=== PATIENT | female | born 2000 | race Caucasian/White ===

== ENCOUNTER 2020-04-04 22:55 | Emergency (ER) | payer MEDICAID, OTHER ==
[~2020-04-04] VITALS: Ht 162.5 cm; Wt 75.7 kg
--- NOTE | 2020-04-04 23:07 | ED General ---
General Stated Complaint: VOMITING Source of Information: Patient History of Present Illness Date Seen by Provider: Apr 04, 2020 Time Seen by Provider: 23:04 Initial Comments 19-year-old female presenting with complaints of vomiting as well as cough and tightness in her chest. She was diagnosed with a sinus infection yesterday at the [facility] clinic. She is approximately 6 weeks estimated gestational age for a . She is following with Dr. Keny May for the . She had recently been around a friend of hers that was sick. Since then she has developed this illness and was concerned that she might have s tarted to get bronchitis because she is prone to having bronchitis. She had been having a lot of nausea and vomiting in the last 24 hours as well. She has had not had any abdominal pain or vaginal bleeding or discharge. She states that with her first she did have to take nausea medicine almost every day. She has had subjective fever and chills. She denies having any dizziness or lightheaded sensation. she did have a negative COVID test at the [facility] yesterday. Allergies and Home Medications Allergies Coded Allergies: Penicillins (Verified Allergy, Unknown, 04/04/20) amoxicillin (Verified Allergy, Unknown, 04/04/20) Home Medications Ondansetron 4 Mg Tab.rapdis, 4 MG PO Q6H PRN for NAUSEA/VOMITING Prescribed by: CHELSEA HEMPHILL on 04/04/20 1651 Patient Home Medication List Home Medication List Reviewed: Yes Review of Systems Review of Systems Constitutional: chills; No dizziness; fever (subjective) EENTM: hoarseness, nose congestion; No ear discharge, No ear pain, No epistaxis Respiratory: cough Cardiovascular: chest pain (tightness in her chest) Gastrointestinal: No abdominal pain; constipation (2 days since her last bowel movement); No diarrhea; nausea, vomiting Genitourinary: No dysuria, No pain : Yes Musculoskeletal: no symptoms reported Skin: no symptoms reported Psychiatric/Neurological: Denies Headache Past Drcmmji-Soinhx-Ailgjx Hx Past Med/Social Hx: Reviewed Nursing Past Med/Soc Hx Patient Social History Recent Foreign Travel: No Contact w/Someone Who Travel: No Past Medical History Surgeries: No Respiratory: No Cardiac: No Neurological: No Reproductive Disorders: No Genitourinary: No Gastrointestinal: No Musculoskeletal: No Endocrine: No HEENT: No Physical Exam Vital Signs Vital Signs - First Documented 12/11/20 23:00 Temp 37.5 Pulse 85 Resp 16 B/P (MAP) 120/80 (93) Pulse Ox 100 O2 Delivery Room Air Capillary Refill : Height, Weight, BMI Height: '" Weight: lbs. oz. kg; BMI Method: General Appearance: WD/WN, Mild Distress HEENT: PERRL/EOMI, Moist Mucous Membranes, Pharyngeal Erythema, TM Abnormal (L) (dullness with effusion), TM Abnormal (R) (dullness with effusion); No Tonsillar Exudate Neck: Non Tender, Supple, Lymphadenopathy (L), Lymphadenopathy (R) Respiratory: Chest Non Tender, No Accessory Muscle Use, No Respiratory Distress, Rhonci (left side clears with cough); No Stridor, No Wheezing Cardiovascular: Regular Rate, Rhythm, Normal Peripheral Pulses Gastrointestinal: Normal Bowel Sounds, No Pulsatile Mass, Non Tender, Soft Extremity: Normal Capillary Refill, No Calf Tenderness, No Pedal Edema Neurologic/Psychiatric: Alert, Oriented x3 Skin: Normal Color, Warm/Dry Progress/Results/Core Measures Suspected Sepsis SIRS Temperature: Pulse: Respiratory Rate: Blood Pressure / Mean: Results/Orders My Orders Orders - CHELSEA HEMPHILL MD Dexamethasone Injection (Decadron Inje (04/04/20 23:30) Methylprednisolone Acetate Inj (Depo-Med (04/04/20 23:30) Ondansetron Oral Dissolve Tab (Zofran (04/04/20 23:30) Rx-Ondansetron Po (Rx-Zofran Po) (04/04/20 23:45) Rx-Albuterol Inhaler (Rx-Ventolin Hfa) (04/04/20 23:45) Vital Signs/I&O 04/04/20 23:00 Temp 37.5 Pulse 85 Resp 16 B/P (MAP) 120/80 (93) Pulse Ox 100 O2 Delivery Room Air Capillary Refill : Progress Note : Progress Note . Reassured patient that her oxygen saturation was 98-100%. Her heart rate is around 80. Will treat with steroid and albuterol with spacer. Use Zofran ODT for her nausea. Encourage fluids and rest. Counseled to follow-up with Dr. May for her continued symptoms. Departure Impression Primary Impression: Upper respiratory infection with cough and congestion Additional Impressions: Incidental Nausea and vomiting during Disposition: HOME, SELF-CARE Condition: Stable Departure-Patient Inst. Decision time for Depature: 23:40 Referrals: KENY MAY MD Patient Instructions: How to Use Your Metered Dose Inhaler (Adults), How to Use a Spacer, Nausea and Vomiting of (DC), Nausea and Vomiting, Adult ED, Upper Respiratory Infection ED Add. Discharge Instructions: Stay well hydrated and get plenty of rest Follow up with clinic for continued symptoms Take the dissolving nausea medicine to try and help with keeping your stomach settled Use the inhaler to help with cough and tightness in chest Scripts Ondansetron (Ondansetron Odt) 4 Mg Tab.rapdis 4 MG PO Q6H PRN for NAUSEA/VOMITING for 3 Days, #12 TAB 0 Refills Prov: CHELSEA HEMPHILL MD 04/04/20 CHELSEA HEMPHILL MD Apr 04, 2020 23:07
[2020-04-04] MEDS ORDERED: methylPREDNISolone 40 MG/ML (DEPO MEDROL) VIAL IM STA (23:30)
[2020-04-04] MEDS ORDERED: ONDANSETRON 4 MG (ZOFRAN) ORAL DISSOLVE TAB PO STA (23:30)
[2020-04-04] MEDS ORDERED: ONDA4TAB11 PO (23:39)
[2020-04-04] MEDS ORDERED: RX-ALBUTEROL INHALER (VENTOLIN HFA) 18 GM IH PRN (23:45)
[2020-04-04] MEDS ORDERED: RX-ONDANSETRON 4 MG ODT (ZOFRAN) PPK #4 PO PRN (23:45)
[2020-04-04 23:57] VITALS: BP 118/79
== END 2020-04-04 23:57 | disposition home or self-care (01) ==
LOC: ER FS 22:57
DX: O26.891 Other specified pregnancy related conditions, first trimester (principal); J06.9 Acute upper respiratory infection, unspecified; R05 Cough; R11.2 Nausea with vomiting, unspecified; Z3A.01 Less than 8 weeks gestation of pregnancy; Z88.0 Allergy status to penicillin; Z88.1 Allergy status to other antibiotic agents
CPT/HCPCS: 99284

== ENCOUNTER 2020-09-01 22:46 | Emergency (ER) | payer MEDICAID ==
[~2020-09-01 22:46] MED LIST: ONDA4TAB11 PO
[2020-09-01] MEDS: NS IV 1000 ML 1,000 ML IV SCH (23:20)
[2020-09-01 23:26] LABS: BASOPHILS # (AUTO) 0.1 10^3/uL (0.0-0.1); BASOPHILS % (AUTO) 0 % (0-10); EOSINOPHILS # (AUTO) 0.2 10^3/uL (0.0-0.3); EOSINOPHILS % (AUTO) 1 % (0-10); HEMATOCRIT 34 % (35-52); HEMOGLOBIN 11.6 G/DL (11.5-16.0); LYMPHOCYTES # (AUTO) 2.6 X 10^3 (1.0-4.0); LYMPHOCYTES % (AUTO) 16 % (12-44); MEAN CORPUSCULAR HEMOGLOBIN 31 PG (25-34); MEAN CORPUSCULAR HGB CONC 34 G/DL (32-36); MEAN CORPUSCULAR VOLUME 91 FL (80-99); MEAN PLATELET VOLUME 10.4 FL (7.4-10.4); MONOCYTES # (AUTO) 1.1 X 10^3 (0.0-1.0); MONOCYTES % (AUTO) 7 % (0-12); NEUTROPHILS % (AUTO) 74 % (42-75); PLATELET COUNT 328 10^3/uL (130-400); WHITE BLOOD COUNT 16.3 10^3/uL (4.3-11.0)
[2020-09-01 23:46] LABS: BILIRUBIN,TOTAL 0.2 MG/DL (0.1-1.0); BUN/CREATININE RATIO 19; CALCIUM 8.8 MG/DL (8.5-10.1); CARBON DIOXIDE 19 MMOL/L (21-32); CHLORIDE 104 MMOL/L (98-107); CREATININE SERUM 0.48 MG/DL (0.60-1.30); GFR ESTIMATED > 60; GLUCOSE 82 MG/DL (70-105); MAGNESIUM 1.8 MG/DL (1.6-2.4); POTASSIUM 3.6 MMOL/L (3.6-5.0); SODIUM 133 MMOL/L (135-145)
[2020-09-01 23:47] LABS: ALANINE AMINOTRANSFERASE 10 U/L (0-55); ALBUMIN 3.5 GM/DL (3.2-4.5); ALKALINE PHOSPHATASE 75 U/L (40-136); TOTAL PROTEIN 6.6 GM/DL (6.4-8.2)
[2020-09-01 23:52] LABS: ATYPICAL LYMPHOCYTES 4 %; BAND NEUTROPHILS 7 %; LYMPHOCYTES % (MANUAL) 18 %; METAMYELOCYTES % 2 %; MONOCYTES % (MANUAL) 6 %; NEUTROPHILS % (MANUAL) 63 %
[2020-09-01 23:53] LABS: RBC MORPH NORMAL
[2020-09-02] MEDS: NS IV 1000 ML 1,000 ML IV SCH (00:11)
[2020-09-02 00:13] LABS: COLOR,URINE DARK YELLOW
[2020-09-02 00:14] LABS: BILIRUBIN,URINE NEGATIVE (NEGATIVE); CLARITY,URINE CLEAR; GLUCOSE, URINE (UA) NEGATIVE (NEGATIVE); KETONES,URINE NEGATIVE (NEGATIVE); LEUKOCYTE ESTERASE ,URINE NEGATIVE (NEGATIVE); NITRITE,URINE NEGATIVE (NEGATIVE); PROTEIN,URINE NEGATIVE (NEGATIVE)
[2020-09-02 00:18] LABS: BACTERIA,URINE MODERATE /HPF; CALCIUM OXALATE CRYSTALS,UR RARE /LPF
--- NOTE | 2020-09-02 00:24 | ED General ---
General Chief Complaint: Dizziness/Syncope Stated Complaint: LIGHT-HEADED | DIZZY | SHAKING | HOT/COLD FLASHES Nursing Triage Note: Pt states that she has been feeling lightheaded since she woke up this morning Nursing Sepsis Screen: No Definite Risk Source of Information: Patient History of Present Illness Date Seen by Provider: September 02, 2020 Time Seen by Provider: 23:00 Initial Comments Patient is a 20-year-old G2, P1, estimated 27 weeks gestation female who presents with dizziness and lightheadedness upon standing today at work. 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 Patient states symptoms are positional. She reports dizziness with near syncope but denies fall or loss of consciousness. She denies chest pain palpitations, shortness of breath, leg pain swelling. No history of DVT or PE. She denies fever chills, nausea vomiting or sweats. No abdominal pain, pelvic cramping/pain, constipation or diarrhea. No urinary frequency urgency or dysuria. No vaginal discharge or fluid leakage. No other symptoms or complaints. Timing/Duration: 12-24 Hours Severity: Mild Modifying Factors: improves with Other Associated Systoms: Other Allergies and Home Medications Allergies Coded Allergies: Penicillins (Verified Allergy, Unknown, 04/04/20) amoxicillin (Verified Allergy, Unknown, 04/04/20) Home Medications Ondansetron 4 Mg Tab.rapdis, 4 MG PO Q6H PRN for NAUSEA/VOMITING Prescribed by: CHELSEA HEMPHILL on 04/04/20 3064 Patient Home Medication List Home Medication List Reviewed: Yes Review of Systems Review of Systems Constitutional: see HPI EENTM: see HPI Respiratory: see HPI Cardiovascular: see HPI Gastrointestinal: see HPI Genitourinary: see HPI Musculoskeletal: see HPI Skin: see HPI Psychiatric/Neurological: See HPI Hematologic/Lymphatic: See HPI Immunological/Allergic: see HPI All Other Systems Reviewed Negative Unless Noted: Yes Past Hdtgqmp-Vpzpgk-Qhvada Hx Past Med/Social Hx: Reviewed Nursing Past Med/Soc Hx Patient Social History Alcohol Use: Denies Use Recent Infectious Disease Expo: No Recent Hopitalizations: No Seasonal Allergies Seasonal Allergies: No Past Medical History Surgeries: No Respiratory: No Cardiac: No Neurological: No Reproductive Disorders: No Female Reproductive Disorders: Denies Genitourinary: No Gastrointestinal: No Musculoskeletal: No Endocrine: No HEENT: No Cancer: No Psychosocial: No Integumentary: No Blood Disorders: No Physical Exam Vital Signs Vital Signs - First Documented 09/01/20 22:50 Temp 36.6 Pulse 97 Resp 18 B/P (MAP) 141/80 (100) Pulse Ox 99 O2 Delivery Room Air Capillary Refill : Less Than 3 Seconds Height, Weight, BMI Height: '" Weight: lbs. oz. kg; 28.00 BMI Method: General Appearance: No Apparent Distress Eyes: Bilateral Eye Normal Inspection, Bilateral Eye PERRL, Bilateral Eye EOMI HEENT: PERRL/EOMI, Pharynx Normal, Moist Mucous Membranes Neck: Full Range of Motion, Non Tender, Supple Respiratory: Lungs Clear Cardiovascular: Regular Rate, Rhythm Gastrointestinal: Non Tender, Soft Back: Normal Inspection, No CVA Tenderness Extremity: Normal Capillary Refill Neurologic/Psychiatric: Alert, Oriented x3, No Motor/Sensory Deficits, gate operator II- XII Norm as Tested Skin: Normal Color Lymphatic: No Adenopathy Focused Exam Sepsis Stage: Ruled Out Progress/Results/Core Measures Suspected Sepsis Recent Fever Within 48 Hours: No Infection Criteria Present: None New/Unexplained Altered Menta: No Sepsis Screen: No Definite Risk SIRS Temperature: Pulse: 97 Respiratory Rate: 18 Laboratory Tests 09/01/20 23:17: White Blood Count 16.3H Blood Pressure 141 /80 Mean: 100 Laboratory Tests 09/01/20 23:17: Creatinine 0.48L, Platelet Count 328, Total Bilirubin 0.2 Results/Orders Lab Results Laboratory Tests Test 09/01/20 23:17 09/02/20 00:06 Range/Units White Blood Count 16.3 H 4.3-11.0 10^3/uL Red Blood Count 3.72 L 4.35-5.85 10^6/uL Hemoglobin 11.6 11.5-16.0 G/DL Hematocrit 34 L 35-52 % Mean Corpuscular Volume 91 80-99 FL Mean Corpuscular Hemoglobin 31 25-34 PG Mean Corpuscular Hemoglobin Concent 34 32-36 G/DL Red Cell Distribution Width 13.2 10.0-14.5 % Platelet Count 328 130-400 10^3/uL Mean Platelet Volume 10.4 7.4-10.4 FL Immature Granulocyte % (Auto) 2 % Neutrophils (%) (Auto) 74 42-75 % Lymphocytes (%) (Auto) 16 12-44 % Monocytes (%) (Auto) 7 0-12 % Eosinophils (%) (Auto) 1 0-10 % Basophils (%) (Auto) 0 0-10 % Neutrophils # (Auto) 12.0 H 1.8-7.8 X 10^3 Lymphocytes # (Auto) 2.6 1.0-4.0 X 10^3 Monocytes # (Auto) 1.1 H 0.0-1.0 X 10^3 Eosinophils # (Auto) 0.2 0.0-0.3 10^3/uL Basophils # (Auto) 0.1 0.0-0.1 10^3/uL Immature Granulocyte # (Auto) 0.3 H 0.0-0.1 10^3/uL Neutrophils % (Manual) 63 % Lymphocytes % (Manual) 18 % Monocytes % (Manual) 6 % Metamyelocytes % 2 % Band Neutrophils 7 % Atypical Lymphocytes 4 % Blood Morphology Comment NORMAL Sodium Level 133 L 135-145 MMOL/L Potassium Level 3.6 3.6-5.0 MMOL/L Chloride Level 104 98-107 MMOL/L Carbon Dioxide Level 19 L 21-32 MMOL/L Anion Gap 10 5-14 MMOL/L Blood Urea Nitrogen 9 7-18 MG/DL Creatinine 0.48 L 0.60-1.30 MG/DL Estimat Glomerular Filtration Rate > 60 BUN/Creatinine Ratio 19 Glucose Level 82 70-105 MG/DL Calcium Level 8.8 8.5-10.1 MG/DL Corrected Calcium 9.2 8.5-10.1 MG/DL Magnesium Level 1.8 1.6-2.4 MG/DL Total Bilirubin 0.2 0.1-1.0 MG/DL Aspartate Amino Transf (AST/SGOT) 13 5-34 U/L Alanine Aminotransferase (ALT/SGPT) 10 0-55 U/L Alkaline Phosphatase 75 40-136 U/L Total Protein 6.6 6.4-8.2 GM/DL Albumin 3.5 3.2-4.5 GM/DL Urine Color DARK YELLOW Urine Clarity CLEAR Urine pH 6.0 5-9 Urine Specific [place] >=1.030 1.016-1.022 Urine Protein NEGATIVE NEGATIVE Urine Glucose (UA) NEGATIVE NEGATIVE Urine Ketones NEGATIVE NEGATIVE Urine Nitrite NEGATIVE NEGATIVE Urine Bilirubin NEGATIVE NEGATIVE Urine Urobilinogen 0.2 < = 1.0 MG/DL Urine Leukocyte Esterase NEGATIVE NEGATIVE Urine RBC (Auto) NEGATIVE NEGATIVE Urine RBC NONE /HPF Urine WBC 2-5 /HPF Urine Squamous Epithelial Cells 10-25 H /HPF Urine Crystals PRESENT H /LPF Urine Calcium Oxalate Crystals RARE H /LPF Urine Bacteria MODERATE H /HPF Urine Casts NONE /LPF Urine Mucus MODERATE H /LPF Urine Culture Indicated NO My Orders Orders - THAI TIRADO DO Cbc With Automated Diff (09/01/20 23:00) Comprehensive Metabolic Panel (09/01/20 23:00) Magnesium (09/01/20 23:00) Ns Iv 1000 Ml (Sodium Chloride 0.9%) (09/01/20 23:00) Ed Iv/Invasive Line Start (09/01/20 23:12) Manual Differential (09/01/20 23:17) Ua Culture If Indicated (09/01/20 23:28) Vital Signs/I&O 09/01/20 22:50 Temp 36.6 Pulse 97 Resp 18 B/P (MAP) 141/80 (100) Pulse Ox 99 O2 Delivery Room Air Capillary Refill : Less Than 3 Seconds Blood Pressure Mean: 100 Departure Communication (Admissions) Vital signs, labs reviewed. IV fluids given. Patient feels significantly improved with treatment. Impression Primary Impression: Orthostatic dizziness Additional Impression: Third trimester Disposition: 01 HOME, SELF-CARE Condition: Stable Departure-Patient Inst. Decision time for Depature: 00:25 Referrals: KENY SHELDON MD (PCP/Family) Primary Care Physician Patient Instructions: Syncope (Fainting) (DC) Add. Discharge Instructions: Please increase daily fluid intake and continue home medications. Follow-up with your MANUFACTURING DIRECTOR as scheduled. Return to the ED if new or worsening symptoms. All discharge instructions reviewed with patient and/or family. Voiced understanding. THAI TIRADO DO September 02, 2020 00:24
[2020-09-02 00:40] VITALS: BP 141/80
== END 2020-09-02 00:44 | disposition home or self-care (01) ==
LOC: EDUNIT# 22:46 → ER FS 22:49
DX: O26.892 Other specified pregnancy related conditions, second trimester (principal); R42 Dizziness and giddiness; Z88.0 Allergy status to penicillin; Z88.1 Allergy status to other antibiotic agents; Z3A.27 27 weeks gestation of pregnancy
CPT/HCPCS: 36415; 80053; 81000; 83735; 85007; 85027

== ENCOUNTER 2020-10-11 18:37 | Outpatient (CLI) | payer MEDICAID ==
[~2020-10-11] VITALS: Ht 161.5 cm; Wt 85.0 kg
[2020-10-11 19:02] VITALS: BP 119/73
[2020-10-11 19:04] LABS: BILIRUBIN,URINE NEGATIVE (NEGATIVE); CLARITY,URINE SL CLOUDY; COLOR,URINE YELLOW; GLUCOSE, URINE (UA) NEGATIVE (NEGATIVE); KETONES,URINE NEGATIVE (NEGATIVE); LEUKOCYTE ESTERASE ,URINE TRACE (NEGATIVE); NITRITE,URINE NEGATIVE (NEGATIVE); PROTEIN,URINE TRACE (NEGATIVE)
[2020-10-11 19:23] VITALS: BP 119/73
[2020-10-11 19:35] LABS: BACTERIA,URINE MODERATE /HPF
--- NOTE | 2020-10-13 07:53 | Physician Query-Final Dx ---
Clinic Account Progress/Dx Physician Query: Please give diagnosis Please include # weeks gestation Date of Service Oct 11, 2020 at 18:37 MAE ORDAZ Oct 13, 2020 07:53
== END 2020-10-11 20:08 | disposition home or self-care (01) ==
LOC: WSo 18:37 → LDRP 18:37 → WSo 20:08
PROVIDERS: ATTEND Family Medicine
DX: O60.03 Preterm labor without delivery, third trimester (principal); Z3A.33 33 weeks gestation of pregnancy
CPT/HCPCS: 81000; 87088

== ENCOUNTER 2020-10-19 07:00 | Emergency (ER) | payer MEDICAID ==
[~2020-10-19] VITALS: Ht 160 cm; Wt 68.0 kg
[2020-10-19 07:13] VITALS: BP 156/90
--- NOTE | 2020-10-19 07:14 | ED GU-Female ---
General Chief Complaint: Female Reproductive Stated Complaint: CONTRACTIONS History of Present Illness Date Seen by Provider: Oct 19, 2020 Time Seen by Provider: 07:10 Initial Comments 20 y/o @ 34 wks presents w contractions. No loss of fluid, no bleeding. Ctx every 5 minutes. OB- Dr Sheldon Allergies and Home Medications Allergies Coded Allergies: Penicillins (Verified Allergy, Unknown, 04/04/20) amoxicillin (Verified Allergy, Unknown, 04/04/20) Home Medications Ondansetron 4 Mg Tab.rapdis, 4 MG PO Q6H PRN for NAUSEA/VOMITING Prescribed by: CHELSEA HEMPHILL on 04/04/20 1227 Patient Home Medication List Home Medication List Reviewed: Yes Review of Systems Review of Systems Constitutional: No chills, No fever Respiratory: no symptoms reported Cardiovascular: no symptoms reported Gastrointestinal: abdominal pain (contractions); No nausea, No vomiting Genitourinary: see HPI; denies dysuria, denies frequency, denies flank pain, denies hematuria Past Vatnglj-Ugfvho-Dsfqxh Hx Past Med/Social Hx: Reviewed Nursing Past Med/Soc Hx Patient Social History Type Used: Cigars 2nd Hand Smoke Exposure: Yes Recent Hopitalizations: No Seasonal Allergies Seasonal Allergies: No Past Medical History Surgeries: No Respiratory: No Cardiac: No Neurological: No Reproductive Disorders: No Female Reproductive Disorders: Denies Genitourinary: No Gastrointestinal: No Musculoskeletal: No Endocrine: No HEENT: No Cancer: No Psychosocial: No Integumentary: No Blood Disorders: No Physical Exam Vital Signs Capillary Refill : Height, Weight, BMI Height: '" Weight: lbs. oz. kg; 32.58 BMI Method: General Appearance: WD/WN, no apparent distress Gastrointestinal: soft; No guarding, No rebound; tenderness (w contractions) Pelvic: other (vertex, post cervix, 50% effaced, 2cm) Progress/Results/Core Measures Suspected Sepsis SIRS Temperature: Pulse: Respiratory Rate: Blood Pressure / Mean: Results/Orders My Orders Orders - JACK GARCIA DO Urinalysis (10/19/20 07:11) Vital Signs/I&O Capillary Refill : Progress Note : Progress Note Called [facility] @ [facility] and spoke to nurse "Emelia", gave pt presentation, HPI, Ctx starting this morning as well as exam findings. Pt will come POV to L&D for evaluation for active labor Departure Impression Primary Impression: Uterine contractions Additional Impression: Third trimester Disposition: 01 HOME, SELF-CARE Condition: Stable Departure-Patient Inst. Decision time for Depature: 07:18 Referrals: KENY SHELDON MD (PCP/Family) Primary Care Physician Add. Discharge Instructions: Go directly to Labor and Delivery at [facility] All discharge instructions reviewed with patient and/or family. Voiced understanding. JACK GARCIA DO Oct 19, 2020 07:14
[2020-10-19 07:32] LABS: BACTERIA,URINE TRACE /HPF; BILIRUBIN,URINE NEGATIVE (NEGATIVE); CLARITY,URINE CLEAR; COLOR,URINE YELLOW; GLUCOSE, URINE (UA) NEGATIVE (NEGATIVE); KETONES,URINE NEGATIVE (NEGATIVE); LEUKOCYTE ESTERASE ,URINE NEGATIVE (NEGATIVE); NITRITE,URINE NEGATIVE (NEGATIVE); PROTEIN,URINE NEGATIVE (NEGATIVE); RBC,URINE 0-2 /HPF
[2020-10-21] MEDS ORDERED: IBUP-844 PO (08:56)
[2020-10-21] MEDS ORDERED: PNV1TABL67 PO (08:56)
== END 2020-10-19 07:23 | disposition home or self-care (01) ==
LOC: EDUNIT# 07:00 → ER FS 07:02
DX: O62.9 Abnormality of forces of labor, unspecified (principal); Z3A.34 34 weeks gestation of pregnancy; Z77.22 Contact with and (suspected) exposure to environmental tobacco smoke (acute) (chronic)
CPT/HCPCS: 81000

== ENCOUNTER 2020-10-19 08:07 | Inpatient (IN) | payer MEDICAID ==
[2020-10-19] VITALS (17 sets, daily range): BP systolic 115–139; BP diastolic 63–93
[~2020-10-19] VITALS: Ht 160 cm; Wt 84.8 kg
[2020-10-19] MEDS ORDERED: D5 LR IV SOLUTION 1,000 ML IV ONE (08:57)
[2020-10-19] MEDS ORDERED: OXYTOCIN PRE-MIX DRIP 500 ML IV ONE ×2 (09:24→10:59)
[2020-10-19] MEDS ORDERED: CLINDAMYCIN 900 MG/50 ML IVPB 50 ML IV ONE ×2 (09:24→09:45)
[2020-10-19] MEDS ORDERED: LIDOCAINE/EPI 2% 1:200,00 (XYLOCAINE) 20 ML VIAL ONE (09:25)
[2020-10-19] MEDS ORDERED: LIDOCAINE/EPI 1%-1:200,000 (XYLOCAINE) 30 ML VIAL INJ ONE (09:30)
[2020-10-19] MEDS ORDERED: MINERAL OIL CONCENTRATE 99.9% 15 ML UDC PO ONE (09:30)
[2020-10-19] MEDS ORDERED: D5 LR IV SOLUTION 1,000 ML IV SCH (09:30)
--- NOTE | 2020-10-19 09:33 | History & Physical-OB ---
OB - Chief Complaint & HPI Date/Time Date of Admission: Date of Admission: 10/19/20 Date seen by a Provider: Oct 19, 2020 Time Seen by a Provider: 09:27 Chief Complaint/History OB-Reason for Admission/Chief: Onset of Labor Hx : 2 Hx Para: 1 Gestational Age in Weeks: 34 Gestational Age in Days: 4 Other reason for admission: Patient started having contractions at 4 AM that became progressively stronger. She is intact. History of Labs A+, Ab neg Rub Imm HIV/HepB/C/RPR NR normal 1 hr GTT GBS Unknown Allergies and Home Medications Allergies Coded Allergies: Penicillins (Verified Allergy, Unknown, 04/04/20) amoxicillin (Verified Allergy, Unknown, 04/04/20) Home Medications Ondansetron 4 Mg Tab.rapdis, 4 MG PO Q6H PRN for NAUSEA/VOMITING Prescribed by: CHELSEA HEMPHILL on 04/04/20 9710 Patient Home Medication List Home Medication List Reviewed: Yes OB - History Hx of Present Care: Yes Ultrasounds: Normal mid trimester US Obstetrical Complications: Other (H/o delivery) Medical Complications: None Obstetrical History Hx : 2 Hx Para: 1 Hx # Term Pregnancies: 0 Hx # Pregnancies: 1 Number of Living Children: 1 Patient Past Medical History None Social History/Family History 2nd Hand Smoke Exposure: Yes Immunizations Tetanus Booster (TDap): Less than 5yrs Rubella: immune RPR/VDRL: Negative GBS Status: Unknown HBsAG: Negative OB - Admission Exam Physical Exam HEENT: NCAT Heart: Rhythm Normal Lungs: Clear Abdomen: Gravid Cervical Dilatation: 8cm Effacement: 100% Station: 0 Membranes: Intact Heart Rate: 130's Accelerations: Accelerations Present Decelerations: No Decelerations Short Term Variability: Present Solution Designer Variability: Average (6-25) Contractions on Admission: < 5 Minutes Apart Intensity: Moderate OB - Assessment/Plan/Diagnosis Assessment Assessment: active labor, labor Admission Dx Third Trimester 34 weeks gestation Premature labor Admission Status: Inpatient Order (span 2 midnights) Reason for Inpatient Admission: Labor Plan Plan: Expectant Management Other Plan 20 yo @ 34.4 wga here in active labor Plan - Expectant management - GBS Unknown: Give Cleocin for PPx given gestation and PCN allergy Copy Copies To 1: KENY SHELDON MD, HOLLY R MD Oct 19, 2020 09:32
[2020-10-19 09:34] LABS: BASOPHILS % (AUTO) 0 % (0-10); EOSINOPHILS # (AUTO) 0.1 10^3/uL (0.0-0.3); EOSINOPHILS % (AUTO) 0 % (0-10); HEMATOCRIT 35 % (35-52); HEMOGLOBIN 11.7 g/dL (11.5-16.0); LYMPHOCYTES # (AUTO) 1.9 10^3/uL (1.0-4.0); LYMPHOCYTES % (AUTO) 12 % (12-44); MEAN CORPUSCULAR HEMOGLOBIN 30 pg (25-34); MEAN CORPUSCULAR HGB CONC 34 g/dL (32-36); MEAN CORPUSCULAR VOLUME 90 fL (80-99); MEAN PLATELET VOLUME 11.2 fL (9.0-12.2); MONOCYTES # (AUTO) 0.8 10^3/uL (0.0-1.0); MONOCYTES % (AUTO) 5 % (0-12); NEUTROPHILS % (AUTO) 82 % (42-75); PLATELET COUNT 273 10^3/uL (130-400); WHITE BLOOD COUNT 15.9 10^3/uL (4.3-11.0)
[2020-10-19 09:49] LABS: LYMPHOCYTES % (MANUAL) 11 %; MONOCYTES % (MANUAL) 8 %; NEUTROPHILS % (MANUAL) 81 %; RBC MORPH NORMAL
[2020-10-19] MEDS: OXYTOCIN PRE-MIX DRIP 500 ML IV SCH ×2 (10:13→11:02)
--- NOTE | 2020-10-19 10:43 | OB Labor & Delivery Record ---
Vag Delivery Note Vag Delivery Note Date of Delivery: 10/19/20 Preoperative Diagnosis: Miriam Branham is a (20 /Para 2 / 1, Gestational Age (wks)34.4 here in active labor, dilated to 8 upon arrival. Postoperative Diagnosis: Same Surgeon: KENY SHELDON Transition Coach: None Anesthesia: Natural Delivery Type: @ 1010 Findings: Viable male infant, apgars 9/9, weight 5#10, 2545 grams Lacerations: left periurethral abrasions Intact placenta with 3 vessel cord. No nuchal cord, body cord or shoulder dystocia Estimated Blood Loss: 125 ml Complications: None Condition: Stable Description of Procedure: The patient is a 20 year old female who presented in labor. She was admitted and informed consent was obtained. Her labor course was remarkable for labor. She progressed to complete dilatation and began to push. She was then set up for delivery. The 's head was delivered atraumatically in the ADALBERTO position. The shoulders and remainder of the 's body were then delivered without difficulty. Upon delivery, the head was held below the level of the perineum and the mouth and nares were bulb suctioned. The cord was doubly clamped and cut and the was handed off to the pediatric staff. An intact placenta with 3-vessel cord delivered via Gaby and there was found to be minimal bleeding.~ Vigorous fundal massage was performed and the fundus was found to be firm. IV oxytocin was given. Examination of the vagina and perineum revealed periurethral laceration that did not require repair. Following the delivery, sponge, instrument and needle counts were correct. Mom and baby were both in stable condition in the labor suite. Vitals - Labs Labs Laboratory Tests 10/19/20 09:22: White Blood Count 15.9H, Red Blood Count 3.87, Hemoglobin 11.7, Hematocrit 35, Mean Corpuscular Volume 90, Mean Corpuscular Hemoglobin 30, Mean Corpuscular Hemoglobin Concent 34, Red Cell Distribution Width 12.9, Platelet Count 273, Mean Platelet Volume 11.2, Immature Granulocyte % (Auto) 1, Neutrophils (%) (Auto) 82H, Lymphocytes (%) (Auto) 12, Monocytes (%) (Auto) 5, Eosinophils (%) (Auto) 0, Basophils (%) (Auto) 0, Neutrophils # (Auto) 13.0H, Lymphocytes # (Auto) 1.9, Monocytes # (Auto) 0.8, Eosinophils # (Auto) 0.1, Basophils # (Auto) 0.0, Immature Granulocyte # (Auto) 0.1, Neutrophils % (Manual) 81, Lymphocytes % (Manual) 11, Monocytes % (Manual) 8, Blood Morphology Comment NORMAL KENY SHELDON MD Oct 19, 2020 10:43
[2020-10-19] MEDS ORDERED: WITCH HAZEL(TUCKS) 40 EA JAR TOP PRN (12:15)
[2020-10-19] MEDS ORDERED: MEASLES,MUMPS,RUBELLA 1 EA INJ SQ ONE (12:15)
[2020-10-19] MEDS ORDERED: TETANUS,DIPTH,PERTUSS P/F (BOOSTRIX) 0.5 ML VIAL IM ONE (12:15)
[2020-10-19] MEDS ORDERED: BENZOCAINE/MENTHOL (DERMOPLAST) 56 ML CAN TP PRN (12:15)
[2020-10-19] MEDS: ACETAMINOPHEN 500 MG TAB (TYLENOL) PO SCH ×2 (13:34→20:58)
[2020-10-19] MEDS ORDERED: CATHETER FLUSH 10 ML SYR IV SCH ×2 (14:00)
[2020-10-19] MEDS: IBUPROFEN 600 MG (MOTRIN) TAB PO SCH (18:25)
[2020-10-19] MEDS: DOCUSATE SODIUM 100 MG (COLACE) CAP PO SCH (20:57)
[2020-10-20 00:58] VITALS: BP 118/77
[2020-10-20] MEDS: IBUPROFEN 600 MG (MOTRIN) TAB PO SCH ×4 (00:58→18:49)
[2020-10-20 04:00] VITALS: BP 115/72
[2020-10-20 06:36] LABS: BASOPHILS # (AUTO) 0.1 10^3/uL (0.0-0.1); BASOPHILS % (AUTO) 0 % (0-10); EOSINOPHILS # (AUTO) 0.2 10^3/uL (0.0-0.3); EOSINOPHILS % (AUTO) 1 % (0-10); HEMATOCRIT 30 % (35-52); HEMOGLOBIN 9.9 g/dL (11.5-16.0); LYMPHOCYTES # (AUTO) 3.1 10^3/uL (1.0-4.0); LYMPHOCYTES % (AUTO) 21 % (12-44); MEAN CORPUSCULAR HEMOGLOBIN 30 pg (25-34); MEAN CORPUSCULAR HGB CONC 33 g/dL (32-36); MEAN CORPUSCULAR VOLUME 91 fL (80-99); MEAN PLATELET VOLUME 11.6 fL (9.0-12.2); MONOCYTES # (AUTO) 1.3 10^3/uL (0.0-1.0); MONOCYTES % (AUTO) 9 % (0-12); NEUTROPHILS # (AUTO) 10.3 10^3/uL (1.8-7.8); NEUTROPHILS % (AUTO) 69 % (42-75); PLATELET COUNT 252 10^3/uL (130-400)
[2020-10-20] MEDS: ACETAMINOPHEN 500 MG TAB (TYLENOL) PO SCH ×3 (06:44→21:34)
[2020-10-20] MEDS: PRENATAL VITAMIN 1 EA TAB PO SCH (08:40)
[2020-10-20] MEDS: DOCUSATE SODIUM 100 MG (COLACE) CAP PO SCH ×2 (08:40→21:34)
[2020-10-20 08:45] VITALS: BP 125/69
[2020-10-20] MEDS: CEPHALEXIN 250 MG (KEFLEX) CAP PO SCH ×2 (08:57→21:34)
[2020-10-20 12:30] VITALS: BP 130/66
[2020-10-20 17:00] VITALS: BP 107/58
[2020-10-20 20:07] VITALS: BP 102/51
--- NOTE | 2020-10-20 20:48 | Postpartum Progress Note ---
Note Note Day # 1 Subjective: Patient is without complaints. Ambulating, voiding. Tolerating a regular diet without nausea or vomiting. Normal lochia. Pain is well controlled with oral pain medications. Breast/Bottle feeding. Objective: Physical Exam: General - Alert and oriented, no apparent distress Abdomen - Soft, appropriately tender to palpation, non-distended, fundus firm at umbilicus Extremities - no edema, negative Alia's bilaterally Assessment: 20 yo G2 now P2 post- day # 1, status post spontaneous vaginal delivery. Recovering well, hemodynamically stable Plan: Routine care. Encourage breast feeding and supplementing with formula and EBM due to hypoglycemia in Encourage ambulation. Continue PNV Plan for discharge tomorrow and 6 week f.u with [facility] Vitals - Labs Vital Signs - I&O Vital Signs Date Time Temp Pulse Resp B/P (MAP) Pulse Ox O2 Delivery O2 Flow Rate FiO2 10/20/20 20:07 36.1 74 18 102/51 (68) 99 Room Air 10/20/20 17:00 36.4 70 18 107/58 (74) 98 Room Air 10/20/20 12:30 36.6 67 18 130/66 (87) 98 Room Air 10/20/20 08:45 36.4 65 18 125/69 (87) 99 Room Air 10/20/20 04:00 36.8 72 18 115/72 (86) 98 Room Air 10/20/20 00:58 36.6 65 18 118/77 (91) 98 Room Air 10/19/20 20:57 37.0 88 16 130/72 (91) 98 Room Air I & O 10/20/20 07:00 Intake Total 1250 ml Balance 1250 ml Labs Laboratory Tests 10/20/20 06:07: White Blood Count 15.0H, Red Blood Count 3.27L, Hemoglobin 9.9L, Hematocrit 30L, Mean Corpuscular Volume 91, Mean Corpuscular Hemoglobin 30, Mean Corpuscular Hemoglobin Concent 33, Red Cell Distribution Width 12.7, Platelet Count 252, Mean Platelet Volume 11.6, Immature Granulocyte % (Auto) 1, Neutrophils (%) (Auto) 69, Lymphocytes (%) (Auto) 21, Monocytes (%) (Auto) 9, Eosinophils (%) (Auto) 1, Basophils (%) (Auto) 0, Neutrophils # (Auto) 10.3H, Lymphocytes # (Auto) 3.1, Monocytes # (Auto) 1.3H, Eosinophils # (Auto) 0.2, Basophils # (Auto) 0.1, Immature Granulocyte # (Auto) 0.1 KENY SHELDON MD Oct 20, 2020 20:48
[2020-10-21 01:09] VITALS: BP 133/80
[2020-10-21] MEDS: IBUPROFEN 600 MG (MOTRIN) TAB PO SCH ×2 (01:10→06:14)
[2020-10-21] MEDS: PRENATAL VITAMIN 1 EA TAB PO SCH (06:14)
[2020-10-21] MEDS: ACETAMINOPHEN 500 MG TAB (TYLENOL) PO SCH (06:15)
[2020-10-21 06:16] VITALS: BP 129/60
--- NOTE | 2020-10-21 08:55 | Discharge Summary ---
Diagnosis/Chief Complaint Date of Admission Oct 19, 2020 at 09:35 Date of Discharge 10/21/20 Admission Diagnosis Admission Diagnosis Labor 34 Completed weeks gestation Discharge Diagnosis delivery Discharge Summary-Simple/Stand Procedures AROM Discharge Physical Examination Allergies: Coded Allergies: Penicillins (Verified Allergy, Unknown, 04/04/20) amoxicillin (Verified Allergy, Unknown, 04/04/20) Vitals & I&Os Vital Sign - Last 12Hours Date Time Temp Pulse Resp B/P (MAP) Pulse Ox O2 Delivery O2 Flow Rate FiO2 10/21/20 06:16 36.2 62 18 129/60 (83) 100 Room Air General Appearance: Alert, Oriented X3, Cooperative, No Acute Distress HEENT: Mucous Memb Moist/[place] Respiratory: Clear to Auscultation, Normal Air Movement Cardiovascular: Regular Rate, No Murmurs Abdominal: Normal Bowel Sounds, Soft, No Tenderness, Other (Fundus firm and below umbilicus) Extremities: No Edema, No Tenderness/Swelling Skin: No Rashes, No Significant Lesion Neuro: Normal Speech, Strength at 5/5 X4 Ext, Sensation Intact, Cranial Nerves 3-12 NL Psych/Mental Status: Mental Status NL, Mood NL Hospital Course Was the Problem List Reviewed?: Yes See final discharge diagnosis. Discussion & Recommendations 20 yo G2 now P2 delivered infant at 34 weeks gestation. Patient was given 1 dose of antibiotics prior to delivery for unknown GBS and labor. Uncomplicated delivery. Continue PNV until post visit. Discharge Condition at discharge Stable Instructions to patient/family Please see electronic discharge instructions given to patient. Discharge Medications Reviewed and agree with Discharge Medication list on patient's Discharge Instruction sheet Copy Copies To 1: KENY SHELDON MD, HOLLY R MD Oct 21, 2020 08:55
[2020-10-21] MEDS ORDERED: IBUP-844 PO (08:56)
[2020-10-21] MEDS ORDERED: PNV1TABL67 PO (08:56)
--- NOTE | 2020-10-21 08:57 | Discharge Summary ---
Discharge Inst-Women's Serv Reconcile Patient Problems Problems Reviewed?: Yes Depart Medications New, Converted or Re-Newed RX: Transmitted to Pharmacy New Medications: Ibuprofen (Ibu) 600 Mg Tablet 600 MG PO Q6HR, #90 TAB Pnv with Ca,No.72/Iron/FA (Pnv Plus Multivit Tab) 1 Each Tablet 1 EA PO DAILY@0700, #30 TAB Discontinued Medications: Ondansetron (Ondansetron Odt) 4 Mg Tab.rapdis 4 MG PO Q6H PRN for NAUSEA/VOMITING for 3 Days, #12 TAB 0 Refills Follow Up/Instructions Goal/Follow Up: F.u with Dr May in 6 weeks Activity Activity: Activity as Tolerated Driving Instructions: You May Drive NO SMOKING: NO SMOKING Nothing Inside Vagina: No Douching, No [place], No Tampons Diet Discharge Diet: No Restrictions Symptoms to Report to : Bleeding Excessive, Pain Increased, Fever Over 101 Degrees F For Any Problems or Questions: Contact Your Physician Copies To 1: KENY MAY MD, HOLLY R MD Oct 21, 2020 08:57
[2020-10-21 09:15] VITALS: BP 130/75
[2020-10-21] MEDS: DOCUSATE SODIUM 100 MG (COLACE) CAP PO SCH (09:20)
[2020-10-21 12:05] VITALS: BP 130/75
== END 2020-10-21 12:05 | disposition home or self-care (01) | DRG 807 ==
LOC: WSo 08:07 → LDRP 08:07 → WSo 09:35 → LDRP 09:35
PROVIDERS: ADMIT Family Medicine; ATTEND Family Medicine
PROC: 10E0XZZ Delivery of Products of Conception, External Approach (ICD-10-PCS; principal; 2020-10-19)
DX: O60.14X0 Preterm labor third trimester with preterm delivery third trimester, not applicable or unspecified (principal); Z37.0 Single live birth; O71.82 Other specified trauma to perineum and vulva; Z3A.34 34 weeks gestation of pregnancy; Z88.1 Allergy status to other antibiotic agents; Z88.0 Allergy status to penicillin
CPT/HCPCS: 36415; 85007; 85025; 85027; 86780; 86850; 86900; 86901

== ENCOUNTER 2021-01-24 23:57 | Emergency (ER) | payer MEDICAID ==
[~2021-01-24 23:57] MED LIST changes: +IBUP-844 PO; +PNV1TABL67 PO
--- OUTSIDE RECORDS SUMMARY | 2021-01-25 00:04 | XMS REPORT | Clinical Summary ---
[facility] Address Unknown Phone Unavailable Care Team Providers Care Engine Manager Name Role Phone Echo Sloan MD PCP Allergies Comments Active Allergy Reactions Severity Noted Date Adhesive Tape Dermatitis Low 03/16/2019 Patient unsure of reaction. From childhood. Amoxicillin Other (See Medium 03/16/2019 Comments) Patient diagnosed when a child and does not know her reaction. Penicillins Other (See Medium 03/16/2019 Comments) Medications End Date Status Medication Sig Dispensed Refills Start Date Active ferrous sulfate Take 325 mg 0 (FRED-IN-HALEY) 325 (65 Fe) by mouth MG tabletIndications: daily with Iron Deficiency Anemia breakfast. Indications: Anemia From Inadequate Iron in the Body Active hydrOXYzine (ATARAX) 50 Take 1 tablet 15 tablet 0 201 MG tabletIndications: DIOR (50 mg total) 9 (generalized anxiety by mouth disorder) every 6 (six) hours as needed for Anxiety. Active mirtazapine (REMERON) 15 Take 1 tablet 30 tablet 0 201 MG tabletIndications: (15 mg total) 9 Severe episode of by mouth at recurrent major bedtime. depressive disorder, without psychotic features (HCC) Active docusate sodium 100 MG Take 100 mg 60 each 0 CAPS by mouth 2 9 (two) times daily. Active Problems Problem Noted Date Cannabis use disorder, moderate, dependence 03/17/20 19 Severe episode of recurrent major depressive disorder , without psychotic 03/16/2019 features DIOR (generalized anxiety disorder) 03/16/2019 PTSD (post-traumatic stress disorder) 03/16/2019 Suicidal ideation 03/16/2019 Iron deficiency anemia 03/16/2019 Psychophysiological insomnia 03/16/2019 Family History Medical History Relation Name Comments Cancer Mother Relation Name Status Comments Father Other Mother Alive Social History Date Tobacco Use Types Packs/Day Years Used Former Smoker 0 Smokeless Tobacco: Never Used Comments Alcohol Use Standard Drinks/Week Not Currently 0 (1 standard drink = 0.6 o z pure alcohol) Control Partners Comments Sexually Active Implant Female, Male Not Currently Sex Assigned at Date Recorded Female 03/16/2019 2:55 PM 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 Last Filed Vital Signs Reading Time Taken Comments Vital Sign 99/58 03/18/2019 5:46 AM [employer]ELANCE 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 Blood Pressure 63 03/18/2019 5:46 AM FREELANCE 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 Pulse 36.7 C (98.1 F) 03/18/2019 5:44 AM FREELANCE 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 Temperature 17 03/18/2019 5:44 AM FREELANCE 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 Respiratory Rate 99% 03/18/2019 5:44 AM FREELANCE 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 Oxygen Saturation - - Inhaled Oxygen Concentration 75.8 kg (167 lb) 03/16/2019 1:47 PM FREELANCE 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 Weight 160 cm (5' 3") 03/16/2019 1:47 PM FREELANCE 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 Height 29.58 03/16/2019 1:47 PM FREELANCE 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 Body Mass Index Plan of Treatment Health Maintenance Due Date Last Done Comments HPV Vaccines (1 - 2-dose 2009 series) COVID-19 Vaccine (1) 2010 MenB Vaccine (Bexsero) (1 2014 of 2) Hepatitis C Screening 2016 DTaP,Tdap,and Td Vaccines 2017 (1 - Tdap) MMR Vaccines-Adult 2017 Cervical Cancer Screening 08/12/2019 Influenza Vaccine (#1) 2020 03/08/2019, 04/03/2016, 04/26/2013, Additional history exists Pneumo-Vaccine: 65+Yrs (1 08/12/2063 of 1 - PPSV23) Varicella Vaccines Completed 08/05/2006, 08/12/1999 HIB Vaccines Aged Out No longer eligible based on patient's age to complete this topic IPV Vaccines Aged Out No longer eligible based on patient's age to complete this topic Meningococcal Vaccine Aged Out No longer eligib le based on patient's age to complete this topic Pneumo-Vaccine: Peds (0-5 Aged Out No longer el igible based on patient's age to Yrs) & At-Risk Patients complete this topic (6-64 Yrs) Rotavirus Vaccines Aged Out No longer eligible based on patient's age to complete this topic Results Not on filefrom Last 3 Months Insurance Type Payer Benefit Subscriber ID Effective Phone Address Plan / Dates Group MEDICAID MEDICAID [id number] 2019 [address] [facility] -Present [address] [employer] 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
--- NOTE | 2021-01-25 00:38 | ED EENT ---
History of Present Illness General Stated Complaint: RT EAR PAIN Source: patient Exam Limitations: no limitations History of Present Illness Date Seen by Provider: Jan 25, 2021 Time Seen by Provider: 00:00 Initial Comments Healthy 20-year-old female coming in due to right ear fullness. Is been full for roughly 3 weeks. Has some difficulty hearing, no significant pain or fever. Finished a course of antibiotics and steroids already. Has seen a doctor roughly 3 days ago as well. Is otherwise denying any other acute complaints including any cough, headache, fever. Allergies and Home Medications Allergies Coded Allergies: Penicillins (Verified Allergy, Unknown, 04/04/20) amoxicillin (Verified Allergy, Unknown, 04/04/20) Patient Home Medication List Home Medication List Reviewed: Yes Ibuprofen (Ibu) 600 Mg Tablet, 600 MG PO Q6HR Prescribed by: KENY SHELDON on 10/21/20 0856 Pnv with Ca,No.72/Iron/FA (Pnv Plus Multivit Tab) 1 Each Tablet, 1 EA P O DAILY@0700 Prescribed by: KENY SHELDON on 10/21/20 0856 Review of Systems Review of Systems Constitutional: No chills, No fever Eyes: Denies Blurred Vision Ears: Denies Tinnitus, Denies Bloody Discharge, Denies Purulent Discharge Nose: denies congestion Mouth: no symptoms reported Throat: denies pain Respiratory: No cough, No short of breath Cardiovascular: No chest pain Gastrointestinal: No abdominal pain, No nausea, No vomiting Musculoskeletal: no symptoms reported Skin: no symptoms reported Neurological: No Symptoms Reported Hematologic/Lymphatic: No Symptoms Reported Immunological/Allergic: no symptoms reported All Other Systems Reviewed Negative Unless Noted: Yes Past Zhokpws-Nsltsh-Wgetig Hx Patient Social History Tobacco Use?: Yes Immunizations Up To Date Tetanus Booster (TDap): Less than 5yrs Seasonal Allergies Seasonal Allergies: No Past Medical History Surgeries: No Respiratory: No Cardiac: No Neurological: No Reproductive Disorders: No Female Reproductive Disorders: Denies Genitourinary: No Gastrointestinal: No Musculoskeletal: No Endocrine: No HEENT: No Cancer: No Psychosocial: No Integumentary: No Blood Disorders: No Physical Exam Height, Weight, BMI Height: '" Weight: lbs. oz. kg; 33.12 BMI Method: General Appearance: WD/WN, no apparent distress Eyes: bilateral eye normal inspection, bilateral eye PERRL Ears: bilateral ear auricle normal, bilateral ear canal normal, bilateral ear TM normal Nose: normal inspection Mouth/Throat: normal mouth inspection, pharynx normal Neck: non-tender, full range of motion, supple, normal inspection Cardiovascular: regular rate, rhythm, no edema, no murmur Respiratory: chest non-tender, lungs clear, normal breath sounds, no respiratory distress, no accessory muscle use Gastrointestinal: normal bowel sounds, non tender, soft; No guarding, No rebound Neurologic/Psychiatric: no motor/sensory deficits, alert, normal mood/affect Skin: normal color, warm/dry Progress/Results/Core Measures Progress Progress Note : Progress Note 20-year-old female with above history coming in due to right ear fullness. ABCs were intact vitals were stable on presentation. Physical exam with maybe a small amount of clear fluid behind the right tympanic membrane but no infection. It is possible she had an infection that cleared up with antibiotics. I will recommend decongestants and antihistamines to help dry it up. She was then discharged home in stable condition with strict return precautions Departure Impression Primary Impression: Otitis media, acute allergic serous Qualified Codes: H65.111 - Acute and subacute allergic otitis media (mucoid) (sanguinous) (serous), right ear Disposition: HOME, SELF-CARE Condition: Stable Departure-Patient Inst. Decision time for Depature: 00:38 Referrals: KENY SHELDON MD (PCP/Family) Primary Care Physician Patient Instructions: Fluid in the Ear ED Add. Discharge Instructions: You have a small amount of clear fluid behind her ear which is why it feels full. You can take antihistamines to help dry it up such as Claritin or Benadryl. Benadryl would make you a bit more sleepy however. You have any fever or any other concerns then come back to the ER. STACIA VALDEZ MD Jan 25, 2021 00:38
[2021-01-25 01:21] VITALS: BP 149/91
== END 2021-01-25 01:25 | disposition home or self-care (01) ==
LOC: EDUNIT# 23:57 → ER FS 01-25 00:01
DX: H65.111 Acute and subacute allergic otitis media (mucoid) (sanguinous) (serous), right ear (principal); Z72.0 Tobacco use
CPT/HCPCS: 99281

== ENCOUNTER 2021-07-23 17:13 | Emergency (ER) | payer MEDICAID ==
[~2021-07-23] VITALS: Ht 63 cm; Wt 72.5 kg
--- NOTE | 2021-07-23 17:15 | ED Abdominal Pain ---
General Stated Complaint: ABD PAIN History of Present Illness Date Seen by Provider: Jul 23, 2021 Time Seen by Provider: 17:20 Initial Comments 20-year-old female presents with some suprapubic pain that radiates up into her epigastric region with some left flank pain that radiates into her groin. Patient reports that it started this morning. No reports of nausea or vomiting. Patient does report that she is approximately 6 weeks . She had a little bit of spotting 2 days ago but no spotting or vaginal bleeding today. Patient denies any fever, chills. Patient reports the symptoms get worse when she stands up and is walking around. Allergies and Home Medications Allergies Coded Allergies: Penicillins (Verified Allergy, Unknown, 04/04/20) amoxicillin (Verified Allergy, Unknown, 04/04/20) Patient Home Medication List Home Medication List Reviewed: Yes Cephalexin (Cephalexin) 500 Mg Tablet, 500 MG PO QID Prescribed by: CARLITOS RUIZ on 07/23/21 184 Ibuprofen (Ibu) 600 Mg Tablet, 600 MG PO Q6HR Prescribed by: KENY SHELDON on 10/21/20 0856 Pnv with Ca,No.72/Iron/FA (Pnv Plus Multivit Tab) 1 Each Tablet, 1 EA PO DAILY@0700 Prescribed by: KENY SHELDON on 10/21/20 0856 Review of Systems Review of Systems Constitutional: no symptoms reported EENTM: No Symptoms Reported Respiratory: No Symptoms Reported Cardiovascular: No Symptoms Reported Gastrointestinal: See HPI Genitourinary: No Symptoms Reported Musculoskeletal: no symptoms reported Skin: no symptoms reported Psychiatric/Neurological: No Symptoms Reported Endocrine: No Symptoms Reported Past Uwbyndw-Phlbbw-Onhzhq Hx Immunizations Up To Date Tetanus Booster (TDap): Less than 5yrs Seasonal Allergies Seasonal Allergies: No Past Medical History Surgeries: No Respiratory: No Cardiac: No Neurological: No Reproductive Disorders: No Female Reproductive Disorders: Denies Genitourinary: No Gastrointestinal: No Musculoskeletal: No Endocrine: No HEENT: No Cancer: No Psychosocial: No Integumentary: No Blood Disorders: No Physical Exam Vital Signs Vital Signs - First Documented 07/23/21 17:50 Temp 36.4 Pulse 89 Resp 20 B/P (MAP) 144/83 (103) Pulse Ox 100 O2 Delivery Room Air Capillary Refill : Height/Weight/BMI Height: '" Weight: lbs. oz. kg; 33.12 BMI Method: General Appearance: WD/WN, no apparent distress HEENT: PERRL/EOMI Respiratory: lungs clear, normal breath sounds Cardiovascular: normal peripheral pulses, regular rate, rhythm Gastrointestinal: soft; No guarding, No rebound; tenderness (mild suprapubic, diffuse ) Extremities: normal range of motion Back: CVA tenderness (R) Progress/Results/Core Measures Results/Orders Lab Results Laboratory Tests Test 07/23/21 17:16 07/23/21 17:32 Range/Units Urine Color YELLOW Urine Clarity CLEAR Urine pH 6.0 5-9 Urine Specific [place] >=1.030 1.016-1.022 Urine Protein NEGATIVE NEGATIVE Urine Glucose (UA) NEGATIVE NEGATIVE Urine Ketones NEGATIVE NEGATIVE Urine Nitrite NEGATIVE NEGATIVE Urine Bilirubin NEGATIVE NEGATIVE Urine Urobilinogen 0.2 < = 1.0 MG/DL Urine Leukocyte Esterase TRACE H NEGATIVE Urine RBC (Auto) NEGATIVE NEGATIVE Urine RBC NONE /HPF Urine WBC 10-25 H /HPF Urine Squamous Epithelial Cells 25-50 H /HPF Urine Crystals NONE /LPF Urine Bacteria MODERATE H /HPF Urine Casts NONE /LPF Urine Mucus MODERATE H /LPF Urine Culture Indicated YES White Blood Count 6.3 4.3-11.0 10^3/uL Red Blood Count 4.47 3.80-5.11 10^6/uL Hemoglobin 13.2 11.5-16.0 g/dL Hematocrit 38 35-52 % Mean Corpuscular Volume 86 80-99 fL Mean Corpuscular Hemoglobin 30 25-34 pg Mean Corpuscular Hemoglobin Concent 35 32-36 g/dL Red Cell Distribution Width 12.8 10.0-14.5 % Platelet Count 262 130-400 10^3/uL Mean Platelet Volume 10.1 9.0-12.2 fL Immature Granulocyte % (Auto) 0 % Neutrophils (%) (Auto) 56 42-75 % Lymphocytes (%) (Auto) 34 12-44 % Monocytes (%) (Auto) 8 0-12 % Eosinophils (%) (Auto) 2 0-10 % Basophils (%) (Auto) 0 0-10 % Neutrophils # (Auto) 3.5 1.8-7.8 10^3/uL Lymphocytes # (Auto) 2.1 1.0-4.0 10^3/uL Monocytes # (Auto) 0.5 0.0-1.0 10^3/uL Eosinophils # (Auto) 0.1 0.0-0.3 10^3/uL Basophils # (Auto) 0.0 0.0-0.1 10^3/uL Immature Granulocyte # (Auto) 0.0 0.0-0.1 10^3/uL Sodium Level 137 135-145 MMOL/L Potassium Level 3.4 L 3.6-5.0 MMOL/L Chloride Level 102 98-107 MMOL/L Carbon Dioxide Level 21 21-32 MMOL/L Anion Gap 14 5-14 MMOL/L Blood Urea Nitrogen 9 7-18 MG/DL Creatinine 0.57 L 0.60-1.30 MG/DL Estimat Glomerular Filtration Rate 132 BUN/Creatinine Ratio 16 Glucose Level 108 H 70-105 MG/DL Calcium Level 9.3 8.5-10.1 MG/DL Corrected Calcium 8.9 8.5-10.1 MG/DL Total Bilirubin 0.2 0.1-1.0 MG/DL Aspartate Amino Transf (AST/SGOT) 21 5-34 U/L Alanine Aminotransferase (ALT/SGPT) 32 0-55 U/L Alkaline Phosphatase 57 40-136 U/L Total Protein 7.4 6.4-8.2 GM/DL Albumin 4.5 3.2-4.5 GM/DL Human Chorionic Gonadotropin, Quant 09588 H <5 MIU/ML My Orders Orders - GURDEEP RUIZVOR L DO Cbc With Automated Diff (07/23/21 17:22) Comprehensive Metabolic Panel (07/23/21 17:22) Hcg,Quantitative (07/23/21 17:22) Ua Culture If Indicated (07/23/21 17:22) Urine Culture (07/23/21 17:16) Cephalexin Capsule (Keflex Capsule) (07/23/21 18:45) Medications Given in ED Current Medications Medications Dose Ordered Sig/Pio Route Start Time Stop Time Status Last Admin Dose Admin Cephalexin HCl 500 mg ONCE ONCE PO 07/23/21 18:45 07/23/21 18:46 DC 07/23/21 18:39 500 MG Vital Signs/I&O 07/23/21 07/23/21 17:50 18:58 Temp 36.4 Pulse 89 77 Resp 20 16 B/P (MAP) 144/83 (103) 122/64 Pulse Ox 100 100 O2 Delivery Room Air Room Air Progress Progress Note : Progress Note Patient symptoms are consistent more with an abdominal wall strain or other etiology then will be related. I did do a bedside ultrasound which showed yolk sac in the uterus. I did discuss with them the need for them to follow-up for repeat visit if her symptoms become more localized, she starts having vaginal bleeding, discharge, fever or other concerns. She has a questionable urine is likely contaminant however due to her being we will treat her with Keflex. She should follow-up with her primary care provider next week for recheck of her symptoms. Departure Impression Primary Impression: Abdominal pain Qualified Codes: R10.84 - Generalized abdominal pain Additional Impressions: 6 weeks gestation of Urinary tract infection affecting Disposition: HOME, SELF-CARE Condition: Stable Departure-Patient Inst. Referrals: KENY SHELDON MD (PCP/Family) Primary Care Physician Patient Instructions: Urinary Tract Infections in , - The Second Month Add. Discharge Instructions: Please return to the ER if your pain localizes especially in the lower abdomen. You develop any fever or chills. If you develop vaginal bleeding or any other concerns Please follow-up with your primary care provider/OB next week for recheck of your urine Scripts Cephalexin (Cephalexin) 500 Mg Tablet 500 MG PO QID, #20 TAB 0 Refills Prov: CARLITOS RUIZ DO 07/23/21 Work/School Note: Work Release Form Date Seen in the Emergency Department: Jul 23, 2021 Return to Work: Jul 27, 2021 CARLITOS RUIZ DO Jul 23, 2021 17:15
[2021-07-23 17:32] LABS: BILIRUBIN,URINE NEGATIVE (NEGATIVE); CLARITY,URINE CLEAR; COLOR,URINE YELLOW; GLUCOSE, URINE (UA) NEGATIVE (NEGATIVE); KETONES,URINE NEGATIVE (NEGATIVE); LEUKOCYTE ESTERASE ,URINE TRACE (NEGATIVE); NITRITE,URINE NEGATIVE (NEGATIVE); PROTEIN,URINE NEGATIVE (NEGATIVE)
[2021-07-23 17:37] LABS: BASOPHILS % (AUTO) 0 % (0-10); EOSINOPHILS # (AUTO) 0.1 10^3/uL (0.0-0.3); EOSINOPHILS % (AUTO) 2 % (0-10); HEMATOCRIT 38 % (35-52); HEMOGLOBIN 13.2 g/dL (11.5-16.0); LYMPHOCYTES # (AUTO) 2.1 10^3/uL (1.0-4.0); LYMPHOCYTES % (AUTO) 34 % (12-44); MEAN CORPUSCULAR HEMOGLOBIN 30 pg (25-34); MEAN CORPUSCULAR HGB CONC 35 g/dL (32-36); MEAN CORPUSCULAR VOLUME 86 fL (80-99); MEAN PLATELET VOLUME 10.1 fL (9.0-12.2); MONOCYTES # (AUTO) 0.5 10^3/uL (0.0-1.0); MONOCYTES % (AUTO) 8 % (0-12); NEUTROPHILS # (AUTO) 3.5 10^3/uL (1.8-7.8); NEUTROPHILS % (AUTO) 56 % (42-75); PLATELET COUNT 262 10^3/uL (130-400); WHITE BLOOD COUNT 6.3 10^3/uL (4.3-11.0)
[2021-07-23 17:45] LABS: BACTERIA,URINE MODERATE /HPF
[2021-07-23 17:46] LABS: SQUAMOUS EPITHELIAL CELL,UR 25-50 /HPF
[2021-07-23 18:07] LABS: CREATININE SERUM 0.57 MG/DL (0.60-1.30); POTASSIUM 3.4 MMOL/L (3.6-5.0)
[2021-07-23 18:08] LABS: ALBUMIN 4.5 GM/DL (3.2-4.5); BILIRUBIN,TOTAL 0.2 MG/DL (0.1-1.0); CALCIUM 9.3 MG/DL (8.5-10.1); TOTAL PROTEIN 7.4 GM/DL (6.4-8.2)
[2021-07-23] MEDS ORDERED: CEPHALEXIN 250 MG (KEFLEX) CAP PO ONE (18:45)
[2021-07-23] MEDS ORDERED: CEPH500T PO (18:48)
[2021-07-23 18:58] VITALS: BP 122/64
== END 2021-07-23 18:58 | disposition home or self-care (01) ==
LOC: EDUNIT# 17:13 → ER FS 17:14
DX: O23.41 Unspecified infection of urinary tract in pregnancy, first trimester (principal); O26.891 Other specified pregnancy related conditions, first trimester; R10.84 Generalized abdominal pain; Z3A.01 Less than 8 weeks gestation of pregnancy
CPT/HCPCS: 36415; 80053; 81000; 84702; 85025; 87088

== ENCOUNTER → 2021-08-01 | Outpatient (CLI) | payer MEDICAID ==
[~2021-08-01] MED LIST changes: +CEPH500T PO
--- NOTE | 2021-08-01 11:00 | Diagnostic Imaging Report ---
US OB<14 WKS SNGLE W/TRANSVAG INDICATION: Vaginal bleeding in early . COMPARISON: None available. TECHNIQUE: Transabdominal and transvaginal sonographic imaging of the pelvis was performed. FINDINGS: There is a gestational sac with normal morphology in appropriate position of the upper uterus. A yolk sac has normal appearance. A pole is present with an estimated crown-rump length of 3 mm. No heart rate was able to be detected. Estimated gestational age by crown-rump length is 6 weeks and 0 days. Small heterogeneous echogenicity region is present along the inferior margin of the gestational sac, encompasses approximately 20% and measures no more than 1.8 cm, could represent a small melissa-gestational hemorrhage. Both ovaries are identified and normal in appearance. Blood flow seen in both ovaries. IMPRESSION: 1. Single intrauterine has a early pole but no heart rate detected at this time. The absence of heart rate would be expected with a crown-rump length of less than 5 mm (current crown-rump length is 3 mm). Continued followup with serial beta hCG and ultrasound as deemed warranted. Dictated by: Dictated on workstation # [id number]
== END ==
LOC: RAD 09:17
PROVIDERS: ATTEND Family Medicine
DX: O26.859 Spotting complicating pregnancy, unspecified trimester (principal); Z3A.00 Weeks of gestation of pregnancy not specified
CPT/HCPCS: 76801; 76817

== ENCOUNTER 2021-08-05 06:14 | Day surgery (SDC) | payer MEDICAID ==
[2021-08-05] VITALS (9 sets, daily range): BP systolic 99–119; BP diastolic 67–82
[~2021-08-05] VITALS: Ht 160 cm; Wt 75.0 kg
[2021-08-05] MEDS: LACTATED RINGERS 1,000 ML IV PRN ×3 (06:30→08:03)
[2021-08-05 06:48] LABS: HEMATOCRIT 38 % (35-52); HEMOGLOBIN 12.9 g/dL (11.5-16.0); MEAN CORPUSCULAR HEMOGLOBIN 30 pg (25-34); MEAN CORPUSCULAR HGB CONC 34 g/dL (32-36); MEAN CORPUSCULAR VOLUME 88 fL (80-99); MEAN PLATELET VOLUME 10.2 fL (9.0-12.2); PLATELET COUNT 282 10^3/uL (130-400)
[2021-08-05] MEDS ORDERED: LIDOCAINE PF 2% 5 ML (XYLOCAINE) VIAL ONE (07:02)
[2021-08-05] MEDS ORDERED: proPOfol 200 MG/20 ML (DIPRIVAN) VIAL IV ONE (07:02)
[2021-08-05] MEDS ORDERED: fentaNYL INJ 100 MCG/2 ML AMP ONE (07:02)
[2021-08-05] MEDS ORDERED: ONDANSETRON 4 MG/2 ML (SDV) Z0FRAN ONE (07:02)
[2021-08-05] MEDS ORDERED: MIDAZOLAM 2 MG/2 ML (VERSED) VIAL ONE (07:03)
--- NOTE | 2021-08-05 07:03 | Progress Note-Pre Operative ---
Pre-Operative Progress Note H&P Reviewed The H&P was reviewed, patient examined and no changes noted. Date Seen by Provider: Aug 05, 2021 Time Seen by Provider: 06:50 Date H&P Reviewed: Aug 05, 2021 Time H&P Reviewed: 06:45 Pre-Operative Diagnosis: Incomplete JOHN Gallo DO Aug 05, 2021 07:03
--- NOTE | 2021-08-05 07:04 | Discharge Inst-Women's Service ---
Discharge Inst-Women's Serv Depart Medication/Instructions New, Converted or Re-Newed RX: Transmitted to Pharmacy Problems Reviewed?: Yes Consults/Follow Up Additional Follow Up: Yes Activity Activity: Activity as Tolerated Driving Instructions: You May Drive (Do not drive today) NO SMOKING: NO SMOKING Nothing Inside Vagina: No Douching, No [place], No Tampons Diet Discharge Diet: No Restrictions Symptoms to Report to : Bleeding Excessive, Pain Increased, Fever Over 101 Degrees F, Vaginal Bleeding Increase, Questions/Concerns For Any Problems or Questions: Contact Your Physician JOHN GOLD DO Aug 05, 2021 07:04
[2021-08-05] MEDS ORDERED: ONDANSETRON 4 MG/2 ML (SDV) Z0FRAN IVP PRN ×2 (07:15→08:00)
[2021-08-05] MEDS ORDERED: KETOROLAC 30 MG/ML VIAL IVP ONE (07:15)
[2021-08-05] MEDS ORDERED: D5 LR IV SOLUTION 1,000 ML IV SCH (07:15)
[2021-08-05] MEDS ORDERED: KETOROLAC 30 MG/ML VIAL ONE (07:54)
[2021-08-05] MEDS ORDERED: morphine INJ 10 MG/ML 1ML (SYR OR VIAL) IVP ONE (08:00)
--- NOTE | 2021-08-05 08:40 | OPERATIVE REPORT ---
DATE OF SERVICE: PREOPERATIVE DIAGNOSIS: A 20-year-old female with incomplete . POSTOPERATIVE DIAGNOSIS: A 20-year-old female with incomplete . PROCEDURE: Suction D and C. SURGEON: John Gold DO ANESTHESIA: LMA general. ESTIMATED BLOOD LOSS: 300 mL. URINE OUTPUT: 50 mL drained at start of procedure. FLUIDS: 800 mL lactated Ringer's solution. FINDINGS: Grossly normal-appearing external female genitalia, uterus sounding to a depth of 10 cm and a moderate amount of products of conception. SPECIMEN SENT: Products of conception. INDICATIONS FOR PROCEDURE: This 21-year-old female was a patient who had sought care in my office yesterday for concerns with incomplete . She had a fall in hCG level and ultrasound consistent with such. She has been to the emergency room throughout the weekend and was told to follow up with her primary care provider on Tuesday. I expedited her consultation in my office and saw her yesterday and we scheduled her for suction D and C this morning. I discussed with the patient the risk of the procedure. She was agreeable to proceed after all of her questions were answered today with her partner present, consent was obtained, the patient was taken to the operating room. OPERATIVE REPORT IN DETAIL: Once in the operating room, anesthesia was found to be adequate, placed in dorsal lithotomy position, prepped and draped in normal sterile fashion. Timeout was performed. The bladder was drained. I then placed a weighted speculum into the patient's vagina. Right angle retractor used to visualize the cervix, which was grasped at 12 o'clock position using a long Allis clamp. I then gently sound the uterine cavity, depth was found to be 10 cm incision. I then gently dilated the cervix using Hanks dilators to maximum dilatation approximately 1 cm, at which point I placed an #8 rigid Suleman suction curette into the uterus. I applied suction to the device using Suleman suction device at a maximum suction of 70 mmHg. at which point I methodically clear all the contents of the endometrium by rotating the suction curette. I then performed a gentle curettage with a sharp curette until a light uterine cry is appreciated. Then, I made one final pass with the [place] suction curette after which bleeding is noted to be minimal. The patient tolerated the procedure well and sent to recovery area in stable condition after all instruments were removed from the patient's vagina. Lap and sponge counts were correct at the end of the procedure. Instrument counts correct as well. Job ID: [id number] DocumentID: [id number] Dictated Date: 08/05/2021 07:37:29 Conservation Agent Date: 08/05/2021 08:39:42 Dictated By: JOHN GOLD DO
--- NOTE | 2021-08-05 09:04 | Anesthesia-General Post-Op ---
General Patient Condition Mental Status/LOC: Same as Preop Cardiovascular: Satisfactory Nausea/Vomiting: Absent Respiratory: Satisfactory Pain: Controlled Complications: Absent Post Op Complications Complications None Follow Up Care/Instructions Patient Instructions None needed. Anesthesia/Patient Condition Patient Condition Patient is doing well, C/O some discomfort which is to be expected, stable vital signs, no apparent adverse anesthesia problems. AARON HUYNH DO Aug 05, 2021 09:04
[2021-08-05] MEDS ORDERED: ACETAMINOPHEN 500 MG TAB (TYLENOL) PO ONE (09:15)
[2021-08-05] MEDS ORDERED: ACETAMINOPHEN 500 MG TAB (TYLENOL) ONE (09:17)
== END 2021-08-05 09:30 ==
LOC: SDC 06:14
PROVIDERS: ATTEND Obstetrics & Gynecology
DX: O03.1 Delayed or excessive hemorrhage following incomplete spontaneous abortion (principal); O03.4 Incomplete spontaneous abortion without complication; F17.210 Nicotine dependence, cigarettes, uncomplicated
CPT/HCPCS: 36415; 85027; 86850; 86900; 86901; 87081

== ENCOUNTER 2022-05-16 12:13 | Emergency (ER) | payer MEDICAID ==
[~2022-05-16] VITALS: Ht 160 cm; Wt 74.1 kg
--- NOTE | 2022-05-16 12:25 | ED Abdominal Pain ---
General Chief Complaint: Abdominal/GI Problems Stated Complaint: LRQ PAIN; N/V History of Present Illness Date Seen by Provider: May 16, 2022 Time Seen by Provider: 12:23 Initial Comments 21-year-old female presents with right lower quadrant pain. She reports that she awoke with it. She reports she woke approximately an hour prior to coming in. She has some nausea and some vomiting, no reported diarrhea. No urinary symptoms but reports that when she went to urinate the pressure intensify the pain. She denies any fever, chills. She has some mild pain in her lower back. It gets worse with any movement or pressing on it. She is currently on her menstrual cycle. Allergies and Home Medications Allergies Coded Allergies: Penicillins (Verified Allergy, Unknown, 04/04/20) amoxicillin (Verified Allergy, Unknown, 04/04/20) Patient Home Medication List Home Medication List Reviewed: Yes Cephalexin (Cephalexin) 500 Mg Tablet, 500 MG PO QID Prescribed by: CARLITOS RUIZ on 07/23/21 1848 Ibuprofen (Ibu) 600 Mg Tablet, 600 MG PO Q6HR Prescribed by: KENY SHELDON on 10/21/20 0856 Ondansetron (Ondansetron Odt) 4 Mg Tab.rapdis, 4 MG PO Q6H PRN for NAUSEA/VOMITING Prescribed by: CARLITOS RUIZ on 05/16/22 1403 Pnv with Ca,No.72/Iron/FA (Pnv Plus Multivit Tab) 1 Each Tablet, 1 EA PO DAILY@0700 Prescribed by: KENY SHELDON on 10/21/20 0856 Review of Systems Review of Systems Constitutional: No chills, No fever EENTM: No Symptoms Reported Respiratory: No Symptoms Reported Cardiovascular: No Symptoms Reported Gastrointestinal: Abdominal Pain, Nausea, Vomiting Genitourinary: No Symptoms Reported Musculoskeletal: no symptoms reported Skin: no symptoms reported Psychiatric/Neurological: No Symptoms Reported Endocrine: No Symptoms Reported Past Qmucspw-Prgduk-Johlyn Hx Immunizations Up To Date Tetanus Booster (TDap): Less than 5yrs First/Initial COVID19 Vaccinat: May& Seasonal Allergies Seasonal Allergies: No Past Medical History Surgery/Hospitalization HX: Labor and delivery with first 2 pregnancies Surgeries: No Respiratory: No Currently Using CPAP: No Currently Using BIPAP: No Cardiac: No Neurological: No Reproductive Disorders: No Female Reproductive Disorders: Denies Genitourinary: No Gastrointestinal: No Musculoskeletal: No Endocrine: No HEENT: No Cancer: No Psychosocial: No Integumentary: No Blood Disorders: No Family Medical History Reviewed Nursing Family Hx Physical Exam Vital Signs Vital Signs - First Documented 05/16/22 12:15 Temp 36.4 Pulse 88 Resp 16 B/P (MAP) 135/82 (99) Pulse Ox 100 O2 Delivery Room Air Capillary Refill : Height/Weight/BMI Height: '" Weight: lbs. oz. kg; 29.29 BMI Method: General Appearance: WD/WN, no apparent distress Neck: full range of motion, supple Respiratory: lungs clear, normal breath sounds Cardiovascular: normal peripheral pulses, regular rate, rhythm Gastrointestinal: soft, guarding, rebound, tenderness Extremities: normal range of motion, non-tender Neurologic/Psychiatric: alert, normal mood/affect, oriented x 3 Skin: normal color, warm/dry Progress/Results/Core Measures Results/Orders Lab Results Laboratory Tests Test 05/16/22 12:15 05/16/22 12:25 Range/Units Urine Color YELLOW Urine Clarity CLEAR Urine pH 7.0 5-9 Urine Specific [place] 1.015 L 1.016-1.022 Urine Protein NEGATIVE NEGATIVE Urine Glucose (UA) NEGATIVE NEGATIVE Urine Ketones NEGATIVE NEGATIVE Urine Nitrite NEGATIVE NEGATIVE Urine Bilirubin NEGATIVE NEGATIVE Urine Urobilinogen 0.2 < = 1.0 MG/DL Urine Leukocyte Esterase NEGATIVE NEGATIVE Urine RBC (Auto) 3+ H NEGATIVE Urine RBC >100 H /HPF Urine WBC NONE /HPF Urine Squamous Epithelial Cells 25-50 H /HPF Urine Crystals NONE /LPF Urine Bacteria TRACE /HPF Urine Casts NONE /LPF Urine Mucus MODERATE H /LPF Urine Culture Indicated NO Urine Test NEGATIVE NEGATIVE White Blood Count 6.1 4.3-11.0 10^3/uL Red Blood Count 4.91 3.80-5.11 10^6/uL Hemoglobin 14.8 11.5-16.0 g/dL Hematocrit 43 35-52 % Mean Corpuscular Volume 88 80-99 fL Mean Corpuscular Hemoglobin 30 25-34 pg Mean Corpuscular Hemoglobin Concent 34 32-36 g/dL Red Cell Distribution Width 12.6 10.0-14.5 % Platelet Count 280 130-400 10^3/uL Mean Platelet Volume 10.0 9.0-12.2 fL Immature Granulocyte % (Auto) 0 % Neutrophils (%) (Auto) 48 42-75 % Lymphocytes (%) (Auto) 41 12-44 % Monocytes (%) (Auto) 8 0-12 % Eosinophils (%) (Auto) 3 0-10 % Basophils (%) (Auto) 1 0-10 % Neutrophils # (Auto) 3.0 1.8-7.8 10^3/uL Lymphocytes # (Auto) 2.5 1.0-4.0 10^3/uL Monocytes # (Auto) 0.5 0.0-1.0 10^3/uL Eosinophils # (Auto) 0.2 0.0-0.3 10^3/uL Basophils # (Auto) 0.0 0.0-0.1 10^3/uL Immature Granulocyte # (Auto) 0.0 0.0-0.1 10^3/uL Sodium Level 137 135-145 MMOL/L Potassium Level 3.7 3.6-5.0 MMOL/L Chloride Level 102 98-107 MMOL/L Carbon Dioxide Level 21 21-32 MMOL/L Anion Gap 14 5-14 MMOL/L Blood Urea Nitrogen 11 7-18 MG/DL Creatinine 0.58 L 0.60-1.30 MG/DL Estimat Glomerular Filtration Rate 130 BUN/Creatinine Ratio 19 Glucose Level 92 70-105 MG/DL Calcium Level 9.4 8.5-10.1 MG/DL Corrected Calcium 8.5-10.1 MG/DL Total Bilirubin 0.4 0.1-1.0 MG/DL Aspartate Amino Transf (AST/SGOT) 16 5-34 U/L Alanine Aminotransferase (ALT/SGPT) 24 0-55 U/L Alkaline Phosphatase 62 40-136 U/L C-Reactive Protein < 0.30 <0.50 MG/DL Total Protein 7.6 6.4-8.2 GM/DL Albumin 4.6 H 3.2-4.5 GM/DL My Orders Orders - RUIZ,CARLITOS L DO Cbc With Automated Diff (05/16/22 12:25) Comprehensive Metabolic Panel (05/16/22 12:25) Hcg,Qualitative Urine (05/16/22 12:25) Ua Culture If Indicated (05/16/22 12:25) Crp Fs (05/16/22 12:25) Ondansetron Injection (Zofran Injectio (05/16/22 12:30) Ed Iv/Invasive Line Start (05/16/22 12:25) Ct Abdomen/Pelvis W (05/16/22 13:03) Iohexol Injection (Omnipaque 350 Mg/Ml 1 (05/16/22 13:30) Received Contrast (Hold Metformin- Contr (05/16/22 13:30) Ns (Ivpb) (Sodium Chloride 0.9% Ivpb Bag (05/16/22 13:30) Medications Given in ED Vital Signs/I&O 05/16/22 05/16/22 12:15 14:05 Temp 36.4 Pulse 88 78 Resp 16 16 B/P (MAP) 135/82 (99) 127/72 Pulse Ox 100 97 O2 Delivery Room Air Room Air 05/17/22 00:00 Intake Total 20 ml Balance 20 ml Progress Progress Note : Progress Note Reviewed patient's labs and CT. Patient urine is consistent with her being on her menstrual cycle. Patient's labs had no significant findings. I discussed risk and benefits of watchful waiting versus CT with patient. She would prefer to have a CAT scan so and a CT was obtained. CT shows no acute intra-abdominal pathology. Patient's likely a gastroenteritis or side effects of her menstrual cycle. I will prescribe her Zofran to help with her nausea and vomiting. She is stable and discharged Diagnostic Imaging Diagonstic Imaging: CT Plain Films/CT/US/NM/MRI: abdomen Comments Date of Exam:05/16/22 CT ABDOMEN/PELVIS W EXAMINATION: CT abdomen and pelvis with intravenous contrast. TECHNIQUE: Multiple contiguous axial images were obtained through the abdomen and pelvis after the uneventful administration of intravenous contrast. All CT scans use one or more of the following dose optimizing techniques: automated exposure control, MA and/or KvP adjustment based on patient size and exam type or iterative reconstruction. HISTORY: Right lower quadrant pain COMPARISON: None available. FINDINGS: Limited views of the lower thorax are unremarkable. The liver is normal without focal lesion. There is no biliary ductal dilation. Gallbladder is normal. Pancreas is normal. Spleen is normal. Adrenal glands are normal. The kidneys are normal. There is no hydronephrosis. Urinary bladder is normal. Bowel is normal in caliber without obstruction or inflammation. The appendix is normal. No free fluid or air. No abdominal or pelvic lymphadenopathy. Aorta is normal in caliber without aneurysm. There are no suspicious osseus lesions. IMPRESSION: 1. No acute abnormality in the abdomen or pelvis. Departure Impression Primary Impression: Nausea and vomiting Qualified Codes: R11.2 - Nausea with vomiting, unspecified Additional Impressions: Abdominal pain Qualified Codes: R10.31 - Right lower quadrant pain Menses painful Disposition: HOME, SELF-CARE Condition: Stable Departure-Patient Inst. Referrals: KENY SHELDON MD (PCP) Primary Care Physician Patient Instructions: Menstrual Cramps, Nausea and Vomiting, Adult ED Add. Discharge Instructions: Follow-up with your primary care provider if symptoms or not improving over the next couple days for recheck of your symptoms All discharge instructions reviewed with patient and/or family. Voiced understanding. Scripts Ondansetron (Ondansetron Odt) 4 Mg Tab.rapdis 4 MG PO Q6H PRN for NAUSEA/VOMITING, #20 TAB 0 Refills Prov: CARLITOS RUIZ DO 05/16/22 CARLITOS RUIZ DO May 16, 2022 12:25
[2022-05-16] MEDS ORDERED: ONDANSETRON 4 MG/2 ML (SDV) Z0FRAN IVP ONE (12:30)
[2022-05-16 12:32] LABS: BILIRUBIN,URINE NEGATIVE (NEGATIVE); CLARITY,URINE CLEAR; COLOR,URINE YELLOW; GLUCOSE, URINE (UA) NEGATIVE (NEGATIVE); KETONES,URINE NEGATIVE (NEGATIVE); LEUKOCYTE ESTERASE ,URINE NEGATIVE (NEGATIVE); NITRITE,URINE NEGATIVE (NEGATIVE); PROTEIN,URINE NEGATIVE (NEGATIVE)
[2022-05-16 12:32] LABS: BASOPHILS % (AUTO) 1 % (0-10); EOSINOPHILS # (AUTO) 0.2 10^3/uL (0.0-0.3); EOSINOPHILS % (AUTO) 3 % (0-10); HEMATOCRIT 43 % (35-52); HEMOGLOBIN 14.8 g/dL (11.5-16.0); LYMPHOCYTES # (AUTO) 2.5 10^3/uL (1.0-4.0); LYMPHOCYTES % (AUTO) 41 % (12-44); MEAN CORPUSCULAR HEMOGLOBIN 30 pg (25-34); MEAN CORPUSCULAR HGB CONC 34 g/dL (32-36); MEAN CORPUSCULAR VOLUME 88 fL (80-99); MONOCYTES # (AUTO) 0.5 10^3/uL (0.0-1.0); MONOCYTES % (AUTO) 8 % (0-12); NEUTROPHILS % (AUTO) 48 % (42-75); PLATELET COUNT 280 10^3/uL (130-400); WHITE BLOOD COUNT 6.1 10^3/uL (4.3-11.0)
[2022-05-16 12:36] LABS: BACTERIA,URINE TRACE /HPF; RBC,URINE >100 /HPF; SQUAMOUS EPITHELIAL CELL,UR 25-50 /HPF
[2022-05-16 12:53] LABS: CARBON DIOXIDE 21 MMOL/L (21-32); CHLORIDE 102 MMOL/L (98-107); POTASSIUM 3.7 MMOL/L (3.6-5.0); SODIUM 137 MMOL/L (135-145)
[2022-05-16 12:54] LABS: ALANINE AMINOTRANSFERASE 24 U/L (0-55); ALBUMIN 4.6 GM/DL (3.2-4.5); ALKALINE PHOSPHATASE 62 U/L (40-136); BILIRUBIN,TOTAL 0.4 MG/DL (0.1-1.0); BUN/CREATININE RATIO 19; CALCIUM 9.4 MG/DL (8.5-10.1); CREATININE SERUM 0.58 MG/DL (0.60-1.30); GFR ESTIMATED 130; GLUCOSE 92 MG/DL (70-105); TOTAL PROTEIN 7.6 GM/DL (6.4-8.2)
[2022-05-16] MEDS ORDERED: IOHEXOL 350 MG/ML 100 ML (OMNIPAQUE 350) VIAL IV ONE (13:30)
[2022-05-16] MEDS ORDERED: NS 100 ML (IVPB) BAG IV ONE (13:30)
[2022-05-16] MEDS ORDERED: HOLD METFORMIN - RECEIVED CONTRAST 20 ML VIAL IV SCH (13:30)
--- NOTE | 2022-05-16 13:40 | Diagnostic Imaging Report ---
EXAMINATION: CT abdomen and pelvis with intravenous contrast. TECHNIQUE: Multiple contiguous axial images were obtained through the abdomen and pelvis after the uneventful administration of intravenous contrast. All CT scans use one or more of the following dose optimizing techniques: automated exposure control, MA and/or KvP adjustment based on patient size and exam type or iterative reconstruction. HISTORY: Right lower quadrant pain COMPARISON: None available. FINDINGS: Limited views of the lower thorax are unremarkable. The liver is normal without focal lesion. There is no biliary ductal dilation. Gallbladder is normal. Pancreas is normal. Spleen is normal. Adrenal glands are normal. The kidneys are normal. There is no hydronephrosis. Urinary bladder is normal. Bowel is normal in caliber without obstruction or inflammation. The appendix is normal. No free fluid or air. No abdominal or pelvic lymphadenopathy. Aorta is normal in caliber without aneurysm. There are no suspicious osseus lesions. IMPRESSION: 1. No acute abnormality in the abdomen or pelvis. Dictated by: Dictated on workstation # [id number]
[2022-05-16] MEDS ORDERED: ONDA4TAB11 PO (14:03)
[2022-05-16 14:05] VITALS: BP 127/72
== END 2022-05-16 14:07 | disposition home or self-care (01) ==
LOC: EDUNIT# 12:13 → ER FS 12:14
DX: R11.2 Nausea with vomiting, unspecified (principal); R10.31 Right lower quadrant pain; R10.2 Pelvic and perineal pain
CPT/HCPCS: 36415; 74177; 80053; 81000; 84703; 85025; 86141; Q9967

== ENCOUNTER 2023-01-26 14:09 | Observation (INO) | payer MEDICAID ==
[~2023-01-26] VITALS: Ht 160 cm; Wt 182.4 kg
[2023-01-26 14:16] VITALS: BP 113/78
[2023-01-26 14:59] LABS: BACTERIA,URINE MODERATE /HPF; BILIRUBIN,URINE NEGATIVE (NEGATIVE); CLARITY,URINE CLOUDY; COLOR,URINE YELLOW; GLUCOSE, URINE (UA) NEGATIVE (NEGATIVE); KETONES,URINE NEGATIVE (NEGATIVE); LEUKOCYTE ESTERASE ,URINE 2+ (NEGATIVE); NITRITE,URINE NEGATIVE (NEGATIVE); PROTEIN,URINE NEGATIVE (NEGATIVE)
[2023-01-26 16:00] VITALS: BP 115/76
[2023-01-26] MEDS ORDERED: MINERAL OIL 30 ML UDC TOP PRN (16:00)
[2023-01-26] MEDS ORDERED: LACTATED RINGERS 1,000 ML 500 ML IV PRN (16:00)
--- NOTE | 2023-01-26 16:04 | OB Triage Report ---
Standard Progress Note Progress Notes/Assess & Plan Date Seen by a Provider: Jan 26, 2023 Time Seen by a Provider: 15:10 Expected Date of Delivery: Feb 23, 2023 Gestational Age in Weeks: 36 Gestational Age in Days: 0 LMP/KENNETH Comment: LMP 05/19/2022 EDD104/25/22 Progress/Assessment & Plan Miriam is a 22yo who was seen in clinic earlier today for possible PPROM. Yesterday morning Pt felt a large gush of clear fluid, however did not feel any contractions at that time. She did not feel contractions until this afternoon today. She feels baby move, and denies VB. Amnisure POS in clinic, however negative x2 at hospital. Ferning negative. US 01/26: BARB 19, vertex SVE 3+/25/-3 PLAN: Admit to L & D for observation overnight Keep on clears, can resume regular diet if contractions decrease in strength and frequency IVF ROM + test for rupture, pending; if positive will start Pitocin for labor augmentation If ROM + is positive, will start ampicillin for possible rupture > 18hrs to prevent infection Reassess in AM Diagnosis/Problems Diagnosis/Problems (1) Threatened premature labor in third trimester WINTER MA MD,RESIDENT Jan 26, 2023 16:04
[2023-01-26] MEDS ORDERED: FLU QUADRIvalent (6 months+) 60 mcg/0.5 ml 2023-2024 (FLUARIX) IM ONE (16:15)
[2023-01-26 16:18] LABS: BASOPHILS # (AUTO) 0.1 10^3/uL (0.0-0.1); BASOPHILS % (AUTO) 0 % (0-10); EOSINOPHILS # (AUTO) 0.1 10^3/uL (0.0-0.3); EOSINOPHILS % (AUTO) 0 % (0-10); HEMATOCRIT 36 % (35-52); HEMOGLOBIN 11.9 g/dL (11.5-16.0); LYMPHOCYTES # (AUTO) 2.5 10^3/uL (1.0-4.0); LYMPHOCYTES % (AUTO) 14 % (12-44); MEAN CORPUSCULAR HEMOGLOBIN 30 pg (25-34); MEAN CORPUSCULAR HGB CONC 33 g/dL (32-36); MEAN CORPUSCULAR VOLUME 91 fL (80-99); MEAN PLATELET VOLUME 11.5 fL (9.0-12.2); MONOCYTES # (AUTO) 1.1 10^3/uL (0.0-1.0); MONOCYTES % (AUTO) 6 % (0-12); NEUTROPHILS # (AUTO) 13.6 10^3/uL (1.8-7.8); NEUTROPHILS % (AUTO) 78 % (42-75); PLATELET COUNT 327 10^3/uL (130-400); WHITE BLOOD COUNT 17.5 10^3/uL (4.3-11.0)
[2023-01-26 16:39] LABS: BAND NEUTROPHILS 0 %; BASOPHILS % (MANUAL) 0 %; EOSINOPHILS % (MANUAL) 0 %; LYMPHOCYTES % (MANUAL) 18 %; MONOCYTES % (MANUAL) 5 %; NEUTROPHILS % (MANUAL) 77 %; RBC MORPH NORMAL
[2023-01-26] MEDS: LACTATED RINGERS 1,000 ML 1,000 ML IV SCH (16:39)
--- NOTE | 2023-01-26 16:40 | Diagnostic Imaging Report ---
INDICATION: Amniotic fluid assessment. FINDINGS: Ultrasonography reveals a desai intrauterine fetus in cephalic presentation. The placenta is anterior without evidence of previa. The heart rate is 135 BPM. The amniotic fluid index is 19 cm. The cervix was not well seen due to head in this region. No maternal adnexal region abnormality is documented. IMPRESSION: The amniotic fluid index is 19 without other evidence of abnormality appreciated. Dictated by: Dictated on workstation # [id number]
[2023-01-26 21:53] VITALS: BP 115/66
[2023-01-26] MEDS ORDERED: CATHETER FLUSH 10 ML SYR IV SCH (22:00)
[2023-01-27] MEDS: LACTATED RINGERS 1,000 ML 1,000 ML IV SCH (00:23)
[2023-01-27 00:39] VITALS: BP 121/77
[2023-01-27 04:06] VITALS: BP 115/58
[2023-01-27 08:00] VITALS: BP 124/59
[2023-01-27] MEDS ORDERED: hydrOXYzine 25 MG CAPSULE PO ONE (08:00)
--- NOTE | 2023-01-27 08:00 | Discharge Summary ---
Discharge [facility] Discharge Medications New, Converted or Re-Newed RX: Other (No new scripts) Continued Medications: Ondansetron (Ondansetron Odt) 4 Mg Tab.rapdis 4 MG PO Q6H PRN for NAUSEA/VOMITING, #20 TAB 0 Refills Pnv with Ca,No.72/Iron/FA (Pnv Plus Multivit Tab) 1 Each Tablet 1 EA PO DAILY@0700, #30 TAB Discontinued Medications: Cephalexin (Cephalexin) 500 Mg Tablet 500 MG PO QID, #20 TAB 0 Refills Ibuprofen (Ibu) 600 Mg Tablet 600 MG PO Q6HR, #90 TAB Patient Instructions Goal/Follow Up Appt: Tuesday 10 AM with Lalo in [place] Patient Instructions: Bed rest Activity & Diet Discharge Diet: No Restrictions KENY SHELDON MD Jan 27, 2023 08:00
--- NOTE | 2023-01-27 08:06 | Short Stay Summary ---
HPI History of Present Illness: 22 yo @ 36.0 wga sent to OB floor for concerns for leaking of fluid. States that yesterday morning she woke up and had a small wet spot on the bed. Denies any contractions or vaginal bleeding. Normal movement. SPE in office with + pH paper. Source: patient Exam Limitations: no limitations Date seen by provider: Jan 27, 2023 Time Seen by Provider: 07:45 Attending Physician Keny May MD PCP Admitting Physician: Keny May MD Attending Physician: Keny May MD Consult Date of Admission Jan 26, 2023 at 15:40 Home Medications Home Medications Reviewed patient Home Medication Reconciliation performed by pharmacy medication reconciliations medical laboratory technician and/or nursing. Patients Allergies have been reviewed. Allergies Coded Allergies: Penicillins (Verified Allergy, Unknown, 04/04/20) amoxicillin (Verified Allergy, Unknown, 04/04/20) FVM-Siphmj-Poxprk Hx Patient Social History Drug of Choice: marijuana Smoking Status: Former Smoker 2nd Hand Smoke Exposure: Yes Recent Hopitalizations: No Alcohol Use?: No Immunizations Up To Date Tetanus Booster (TDap): Less than 5yrs Influenza Vaccine Up-to-Date: No; Not Current First/Initial COVID19 Vaccinat: May& Second COVID19 Vaccination Harshil: May& Third COVID19 Vaccination Date: May& Past Medical History h/o delivery x2 @ 34 weeks Review of Systems ([facility]) Constitutional: no symptoms reported EENTM: no symptoms reported Respiratory: no symptoms reported Cardiovascular: no symptoms reported Gastrointestinal: abdominal pain; No nausea, No vomiting Genitourinary: frequency : Yes Expected Date of Delivery: Feb 23, 2023 Musculoskeletal: back pain Skin: no symptoms reported Psychiatric/Neurological: No Symptoms Reported Physical Exam-([facility]) Physical Exam Vital Signs VS - Last 72 Hours, by Label 01/26/23 01/26/23 01/26/23 01/26/23 14:16 14:18 16:00 21:53 Temp 36.5 36.7 36.5 Pulse 102 81 68 Resp 22 22 18 B/P (MAP) 115/76 (89) 115/66 (82) Pulse Ox 98 97 99 O2 Delivery Room Air Room Air Room Air Room Air 01/27/23 01/27/23 00:39 04:06 Temp 36.4 36.6 Pulse 81 85 Resp 20 20 B/P (MAP) 121/77 (92) 115/58 (77) Pulse Ox 98 100 O2 Delivery Room Air Capillary Refill : Less Than 3 Seconds General Appearance: WD/WN, no apparent distress Neck: non-tender, full range of motion Respiratory: chest non-tender, lungs clear, normal breath sounds, no respiratory distress, no accessory muscle use Cardiovascular: normal peripheral pulses, regular rate, rhythm, no murmur Gastrointestinal: normal bowel sounds, soft, other (Gravid uterus, non tender) Back: no CVA tenderness, no vertebral tenderness Extremities: normal range of motion, non-tender, normal inspection, no pedal edema, no calf tenderness, normal capillary refill Neurologic/Psychiatric: supervisor fusing room II-XII nml as tested, alert, oriented x 3 Skin: normal color, warm/dry Lymphatic: no adenopathy Short Stay Diagnosis Discharge Diagnosis-Short Stay Admission Diagnosis Third Trimester 36 weeks gestation h/o delivery Final Discharge Diagnosis See above Conclusion Plan 22 yo @ 36.1 wga here to monitor for leaking of fluid Plan - Workup has been negative, no additional fluid has been seen over night - Not feeling contractions, + uterine irriatibility, will given dose of vesteril - RTC precautions given - D/c home on bed rest and will see Lalo in clinic on Tuesday with BPP Problem List (1) Threatened premature labor in third trimester Assessment/Plan Assessment/Plan Admission Status: Observation KENY MAY MD Jan 27, 2023 08:06
[2023-01-27 09:48] VITALS: BP 121/76
[2023-02-03] MEDS ORDERED: IBUP-844 PO (08:18)
== END 2023-01-27 07:57 | disposition home or self-care (01) ==
LOC: LDRP 14:09 → WSo 14:09 → LDRP 15:40
PROVIDERS: ADMIT Family Medicine; ATTEND Family Medicine
DX: O42.913 Preterm premature rupture of membranes, unspecified as to length of time between rupture and onset of labor, third trimester (principal); Z3A.36 36 weeks gestation of pregnancy; Z87.891 Personal history of nicotine dependence; Z87.51 Personal history of pre-term labor
CPT/HCPCS: 76815; 81000; 84112; 85007; 85027; 86780; 87088; 87210; 96360; 96361 ×2; G0378; G0379; G0463; Q0114; 36415; 89060; 99212

== ENCOUNTER 2023-02-02 00:04 | Inpatient (IN) | payer MEDICAID ==
[2023-02-02] VITALS (39 sets, daily range): BP systolic 107–153; BP diastolic 56–96
[~2023-02-02] VITALS: Ht 160 cm; Wt 83.1 kg
[2023-02-02] MEDS ORDERED: D5 LR 1,000 ML IV SOLN 1,000 ML IV ONE (00:44)
[2023-02-02 00:45] LABS: BASOPHILS # (AUTO) 0.1 10^3/uL (0.0-0.1); BASOPHILS % (AUTO) 0 % (0-10); EOSINOPHILS # (AUTO) 0.1 10^3/uL (0.0-0.3); EOSINOPHILS % (AUTO) 1 % (0-10); HEMATOCRIT 34 % (35-52); HEMOGLOBIN 11.5 g/dL (11.5-16.0); LYMPHOCYTES # (AUTO) 3.6 10^3/uL (1.0-4.0); LYMPHOCYTES % (AUTO) 20 % (12-44); MEAN CORPUSCULAR HEMOGLOBIN 31 pg (25-34); MEAN CORPUSCULAR HGB CONC 34 g/dL (32-36); MEAN CORPUSCULAR VOLUME 91 fL (80-99); MEAN PLATELET VOLUME 11.4 fL (9.0-12.2); MONOCYTES # (AUTO) 1.3 10^3/uL (0.0-1.0); MONOCYTES % (AUTO) 7 % (0-12); NEUTROPHILS # (AUTO) 13.2 10^3/uL (1.8-7.8); NEUTROPHILS % (AUTO) 72 % (42-75); PLATELET COUNT 319 10^3/uL (130-400); WHITE BLOOD COUNT 18.3 10^3/uL (4.3-11.0)
[2023-02-02] MEDS ORDERED: D5 LR 1,000 ML IV SOLN 1,000 ML IV SCH (00:45)
[2023-02-02] MEDS ORDERED: LACTATED RINGERS 1,000 ML 500 ML IV PRN (00:45)
[2023-02-02] MEDS ORDERED: MINERAL OIL 30 ML UDC TOP PRN (00:45)
[2023-02-02] MEDS ORDERED: fentaNYL 2 mcg/ml BUPIVA 0.125 100 ML ONE (01:01)
[2023-02-02] MEDS ORDERED: HYDR-3584 PO (01:09)
[2023-02-02] MEDS ORDERED: FAMO20TA5 PO (01:09)
--- NOTE | 2023-02-02 01:11 | History & Physical-OB ---
OB - Chief Complaint & HPI Date/Time Date of Admission: Date of Admission: Feb 02, 2023 at 00:31 Date seen by a Provider: Feb 02, 2023 Time Seen by a Provider: 00:50 Chief Complaint/History OB-Reason for Admission/Chief: Onset of Labor Hx : 4 Hx Para: 3 Expected Date of Delivery: Feb 23, 2023 Gestational Age in Weeks: 37 Gestational Age in Days: 0 Other reason for admission: at 37w0d presented to Labor and Delivery with contractions starting a few hours ago. She has had some vaginal bleeding, denies leaking fluid. Endorses normal movement. History of Labs A+, RI. HIV/HepB/HepC/RPR NR. GC/chlamydia neg. 1 hour glucola 139, 3 hour glucola all normal. GBS neg. Allergies and Home Medications Allergies Coded Allergies: Penicillins (Verified Allergy, Unknown, 04/04/20) amoxicillin (Verified Allergy, Unknown, 04/04/20) Patient Home Medication List Home Medication List Reviewed: Yes Famotidine (Famotidine) 20 Mg Tablet, 20 MG PO DAILY, (Reported) Entered as Reported by: TIKI GRANT on 02/02/23108 Last Action: New Order Hydroxyzine HCl (Hydroxyzine HCl) 10 Mg Tablet, 10 MG PO BID PRN for prn, (Reported) Entered as Reported by: TIKI GRANT on 02/02/23108 Last Action: New Order Pnv with Ca,No.72/Iron/FA (Pnv Plus Multivit Tab) 1 Each Tablet, 1 EA PO DAILY@0700 Prescribed by: KENY SHELDON on 10/21/20 0856 Last Action: Reviewed Discontinued Medications Cephalexin (Cephalexin) 500 Mg Tablet, 500 MG PO QID Prescribed by: CARLITOS RUIZ on 07/23/21 1848 Ibuprofen (Ibu) 600 Mg Tablet, 600 MG PO Q6HR Prescribed by: KENY SHELDON on 10/21/20 0856 Ondansetron (Ondansetron Odt) 4 Mg Tab.rapdis, 4 MG PO Q6H PRN for NAUSEA/VOMITING Prescribed by: CARLITOS RUIZ on 05/16/22 1403 Last Action: Discontinued OB - History Hx of Present Care: Yes Ultrasounds: Normal mid trimester US Obstetrical Complications: None Obstetrical History Hx : 4 Hx Para: 2 Hx # Term Pregnancies: 0 Hx # Pregnancies: 2 Number of Living Children: 2 Hx Termination: No Hx Multiple Gestation: No Hx Ectopic : No Hx Stillbirth: No Hx Complication: No Hx Induced Hypertens: No Hx Maternal Gestational Diabet: No Hx Hemorrhage: No Delivery History Hx Dystocia: No Hx Forceps Assisted Delivery: No Hx Vacuum Extraction Assisted: No Hx Placenta Abnormality: No Hx Distress: No Hx Large For Gestational Age I: No Hx Small for Gestational Age I: No Hx Section: No Hx Vaginal Delivery Post C-Sec: No Hx Blood Disorders: No Adverse Rxn to Tranfusion: No Risk Variables Obstetrical Risk Variables: Not POA Anemia, Not POA Asthma, Not POA Autoimmune Disease, Not POA Bariatric Surgery, Not POA Bleeding Disorder, Not POA BMI >= 40, Not POA Cardiac Disease, Not POA Economic Housing Instabil, Not POA Gastrointestinal Disease, Not POA Gestational Diabetes, Not POA HIV, Not POA Hypertension, Not POA 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 U, Not POA Mental Health Disorder, Not POA Multiple , Not POA Neuromuscular Disease, Not POA Obstetrical VTE, Not POA Other Preeclampsia, Not POA Placenta Previa, Not POA Placental Abruption, Not POA Placenta Accreta Spectrum, Not POA Preexisting Diabetes, Not POA , Not POA Previous , Not POA Pulmonary Hypertension, Not POA Renal Disease, Not POA Severe Preeclampsia, Not POA Substance Abuse, Not POA Thyrotoxicosis Patient Past Medical History h/o delivery x2 @ 34 weeks Social History/Family History Alcohol Use: Denies Use Smoking Cessation: Former smoker 2nd Hand Smoke Exposure: Yes Immunizations Influenza Vaccine Up-to-Date: No; Not Current First/Initial COVID19 Vaccine: May Second COVID19 Vaccination: May Third COVID19 Vaccination Date: May Hepatitis A: No Hepatitis B: No Tetanus Booster (TDap): Less than 5yrs Rubella: immune RPR/VDRL: Negative GBS Status: Negative HBsAG: Negative OB - Admission Exam Physical Exam Vitals: Vital Signs 02/02/23 00:46 Pulse 89 Resp 18 B/P (MAP) 130/90 (103) O2 Delivery Room Air HEENT: NCAT Cervical Dilatation: 7cm (per nursing exam at 0020) Effacement: 100% Station: -1 Membranes: Intact Heart Rate: 120's Accelerations: Accelerations Present Decelerations: No Decelerations Halfway Variability: Average (6-25) Contractions on Admission: < 5 Minutes Apart Labs Laboratory Tests Test 02/02/23 00:30 Range/Units White Blood Count 18.3 H 4.3-11.0 10^3/uL Red Blood Count 3.76 L 3.80-5.11 10^6/uL Hemoglobin 11.5 11.5-16.0 g/dL Hematocrit 34 L 35-52 % Mean Corpuscular Volume 91 80-99 fL Mean Corpuscular Hemoglobin 31 25-34 pg Mean Corpuscular Hemoglobin Concent 34 32-36 g/dL Red Cell Distribution Width 13.5 10.0-14.5 % Platelet Count 319 130-400 10^3/uL Mean Platelet Volume 11.4 9.0-12.2 fL Immature Granulocyte % (Auto) 1 % Neutrophils (%) (Auto) 72 42-75 % Lymphocytes (%) (Auto) 20 12-44 % Monocytes (%) (Auto) 7 0-12 % Eosinophils (%) (Auto) 1 0-10 % Basophils (%) (Auto) 0 0-10 % Neutrophils # (Auto) 13.2 H 1.8-7.8 10^3/uL Lymphocytes # (Auto) 3.6 1.0-4.0 10^3/uL Monocytes # (Auto) 1.3 H 0.0-1.0 10^3/uL Eosinophils # (Auto) 0.1 0.0-0.3 10^3/uL Basophils # (Auto) 0.1 0.0-0.1 10^3/uL Immature Granulocyte # (Auto) 0.1 0.0-0.1 10^3/uL OB - Assessment/Plan/Diagnosis Assessment Admission Dx Active labor at 37 weeks gestation GBS negative Admission Status: Inpatient Order (span 2 midnights) Reason for Inpatient Admission: labor, delivery and course Plan Plan: Expectant Management (desires epidural and AROM, will wait to recheck cervix and rupture until epidural in place if possible) TIKI GRANT MD Feb 02, 2023 01:11
[2023-02-02] MEDS ORDERED: fentaNYL INJECTION 100 MCG/2 ML VIAL ONE (01:23)
[2023-02-02] MEDS: fentaNYL 2 mcg/ml BUPIVA 0.125 100 ML EPI SCH ×2 (01:40→02:19)
[2023-02-02] MEDS ORDERED: METOCLOPRAMIDE INJ 10 MG/2 ML IV PRN (02:00)
[2023-02-02] MEDS ORDERED: ONDANSETRON INJECTION 4 MG/2 ML (SDV) IV PRN (02:00)
[2023-02-02] MEDS ORDERED: LACTATED RINGERS 1,000 ML 1,000 ML IV SCH (02:00)
[2023-02-02] MEDS ORDERED: NALOXONE 0.4 MG/ML 1 ML VIAL IV PRN ×2 (02:00)
[2023-02-02] MEDS ORDERED: diphenhydrAMINE INJ 50 MG/ML VIAL IV PRN (02:00)
--- NOTE | 2023-02-02 02:02 | Labor Progress Note ---
Labor Progress Note Labor Progress Note Date Seen by Provider: Feb 02, 2023 Time Seen by Provider: 01:55 Subjective: Pt vomiting, she relates to her acid reflux that is worse at night. Pain is down to 0 after epidural. Objective: Cervical exam: 8/100/0 Consistency: soft Position: anterior Presentation: vertex heart tones: 120 beats per minute, moderate variability, reactive Tocometer: 4-5 ctx/10 minutes Assessment/Plan: Miriam Branham is a 22 /Para 4 / 2,Gestational Age (wks)37 here for active labor. AROM done at time of exam with clear fluid return. CEFM/TOCO Anesthesia: Epidural Anticipate vaginal delivery. Vitals - Labs Vital Signs - I&O Vital Signs Date Time Temp Pulse Resp B/P (MAP) Pulse Ox O2 Delivery O2 Flow Rate FiO2 02/02/23 01:34 100 18 136/83 (100) Room Air 02/02/23 01:32 104 18 130/74 (92) Room Air 02/02/23 01:31 106 18 134/84 (101) Room Air 02/02/23 01:29 105 18 135/75 (95) Room Air 02/02/23 01:26 110 18 141/88 (105) Room Air 02/02/23 01:16 105 18 140/77 (98) Room Air 02/02/23 01:03 104 18 143/81 (101) Room Air 02/02/23 00:46 89 18 130/90 (103) Room Air 02/02/23 00:26 36.8 89 18 130/84 (99) 97 Room Air 02/02/23 00:26 36.8 89 18 97 Room Air Labs Laboratory Tests 02/02/23 00:30: White Blood Count 18.3H, Red Blood Count 3.76L, Hemoglobin 11.5, Hematocrit 34L, Mean Corpuscular Volume 91, Mean Corpuscular Hemoglobin 31, Mean Corpuscular Hemoglobin Concent 34, Red Cell Distribution Width 13.5, Platelet Count 319, Mean Platelet Volume 11.4, Immature Granulocyte % (Auto) 1, Neutrophils (%) (Auto) 72, Lymphocytes (%) (Auto) 20, Monocytes (%) (Auto) 7, Eosinophils (%) (Auto) 1, Basophils (%) (Auto) 0, Neutrophils # (Auto) 13.2H, Lymphocytes # (Auto) 3.6, Monocytes # (Auto) 1.3H, Eosinophils # (Auto) 0.1, Basophils # (Auto) 0.1, Immature Granulocyte # (Auto) 0.1, Syphilis Total Antibody Negative TIKI GRANT MD Feb 02, 2023 02:02
[2023-02-02] MEDS ORDERED: OXYTOCIN DRIP PRE-MIX 500 ML IV ONE ×2 (02:47→03:42)
[2023-02-02] MEDS ORDERED: LIDOCAINE 2% w/EPI 1:200,000 20 ML VIAL ONE (02:48)
[2023-02-02] MEDS: OXYTOCIN DRIP PRE-MIX 500 ML IV SCH ×2 (03:07→03:45)
--- NOTE | 2023-02-02 03:21 | OB Labor & Delivery Record ---
Vag Delivery Note Vag Delivery Note Date of Delivery: 02/02/23 Preoperative Diagnosis: Miriam Branham is a (22 /Para 4 / 2, Gestational Age (wks)37with 0 days Postoperative Diagnosis: Same Attending Surgeon/Physician: Tiki Rosales MD Anesthesia: Epidural Delivery Type: Findings: Viable female infant, apgars 9/9, weight 3220 grams Lacerations: bilateral periurethral abrasions Intact placenta with 3 vessel cord. No nuchal cord, body cord or shoulder dystocia Estimated Blood Loss: 100 ml Complications: None Condition: Stable Description of Procedure: The patient is a 22 year old female who presented in active labor. She was admitted and informed consent was obtained. Her labor course was unremarkable. She progressed to complete dilatation and began to push. She was then set up for delivery. The infant's head was delivered atraumatically in the ADALBERTO position. The shoulders and remainder of the 's body were then delivered without difficulty. Upon delivery, the was vigorous and placed on maternal chest and the mouth and nares were bulb suctioned. After a delay cord was doubly clamped and cut and the remained on maternal chest. An intact placenta with 3-vessel cord delivered via Gaby and there was found to be minimal bleeding.~ Vigorous fundal massage was performed and the fundus was found to be firm. IV oxytocin was given. Examination of the vagina and perineum revealed bilateral periurethral abrasions not requiring repair. Following the delivery, sponge, instrument and needle counts were correct. Mom and baby were both in stable condition in the labor suite. Vitals - Labs Vital Signs - I&O Vital Signs Date Time Temp Pulse Resp B/P (MAP) Pulse Ox O2 Delivery O2 Flow Rate FiO2 02/02/23 02:20 72 18 123/71 (88) 98 Room Air 02/02/23 02:15 75 18 123/74 (90) 98 Room Air 02/02/23 02:10 103 18 127/79 (95) 100 Room Air 02/02/23 02:02 18 147/67 (93) 100 Room Air 02/02/23 01:59 100 18 141/73 (95) 96 Room Air 02/02/23 01:57 123 18 134/96 (109) 96 Room Air 02/02/23 01:53 114 18 134/66 (88) 100 Room Air 02/02/23 01:50 95 18 129/80 (96) 100 Room Air 02/02/23 01:47 85 18 129/79 (96) 99 Room Air 02/02/23 01:44 86 18 120/75 (90) 100 Room Air 02/02/23 01:40 94 18 125/80 (95) 100 Room Air 02/02/23 01:34 100 18 136/83 (100) Room Air 02/02/23 01:32 104 18 130/74 (92) Room Air 02/02/23 01:31 106 18 134/84 (101) Room Air 02/02/23 01:29 105 18 135/75 (95) Room Air 02/02/23 01:26 110 18 141/88 (105) Room Air 02/02/23 01:16 105 18 140/77 (98) Room Air 02/02/23 01:03 104 18 143/81 (101) Room Air 02/02/23 00:46 89 18 130/90 (103) Room Air 02/02/23 00:26 36.8 89 18 130/84 (99) 97 Room Air 02/02/23 00:26 36.8 89 18 97 Room Air Labs Laboratory Tests 02/02/23 00:30: White Blood Count 18.3H, Red Blood Count 3.76L, Hemoglobin 11.5, Hematocrit 34L, Mean Corpuscular Volume 91, Mean Corpuscular Hemoglobin 31, Mean Corpuscular Hemoglobin Concent 34, Red Cell Distribution Width 13.5, Platelet Count 319, Mean Platelet Volume 11.4, Immature Granulocyte % (Auto) 1, Neutrophils (%) (Auto) 72, Lymphocytes (%) (Auto) 20, Monocytes (%) (Auto) 7, Eosinophils (%) (Auto) 1, Basophils (%) (Auto) 0, Neutrophils # (Auto) 13.2H, Lymphocytes # (Auto) 3.6, Monocytes # (Auto) 1.3H, Eosinophils # (Auto) 0.1, Basophils # (Auto) 0.1, Immature Granulocyte # (Auto) 0.1, Syphilis Total Antibody Negative TIKI ROSALES MD Feb 02, 2023 03:21
[2023-02-02] MEDS ORDERED: WITCH HAZEL(TUCKS) 40 EA JAR TOP PRN (03:30)
[2023-02-02] MEDS ORDERED: BENZOCAINE/MENTHOL (DERMOPLAST) 56 ML CAN TP PRN (03:30)
[2023-02-02] MEDS: IBUPROFEN 600 MG TABLET PO SCH ×4 (04:11→23:22)
[2023-02-02] MEDS: ACETAMINOPHEN 500 MG TABLET PO PRN ×2 (05:48→13:48)
[2023-02-02] MEDS ORDERED: CATHETER FLUSH 10 ML SYR IV SCH ×2 (06:00)
[2023-02-02] MEDS ORDERED: FLU QUADRIvalent (6 months+) 60 mcg/0.5 ml 2023-2024 (FLUARIX) IM ONE (07:15)
--- NOTE | 2023-02-02 07:15 | Anesthesia-Regional Post-Op ---
Regional Patient Condition Mental Status: Alert, Oriented x3 Circulation: Same as Pre-Op Headache: Absent Sensation: Full Recovery Motor Block: Absent Post Op Complications Complications None Follow Up Care/Instructions Patient Instructions None needed. Anesthesia/Patient Condition Patient is doing well, no complaints, stable vital signs, no apparent adverse anesthesia problems. No complications reported per nursing. RIDGE CUELLAR CRNA Feb 02, 2023 07:15
[2023-02-02] MEDS: DOCUSATE SODIUM 100 MG CAPSULE PO SCH ×2 (09:33→23:22)
[2023-02-02] MEDS: PRENATAL VITAMIN TABLET PO SCH (09:33)
[2023-02-03 05:47] LABS: BASOPHILS # (AUTO) 0.1 10^3/uL (0.0-0.1); BASOPHILS % (AUTO) 0 % (0-10); EOSINOPHILS # (AUTO) 0.2 10^3/uL (0.0-0.3); EOSINOPHILS % (AUTO) 1 % (0-10); HEMATOCRIT 34 % (35-52); HEMOGLOBIN 11.2 g/dL (11.5-16.0); LYMPHOCYTES # (AUTO) 3.6 10^3/uL (1.0-4.0); LYMPHOCYTES % (AUTO) 21 % (12-44); MEAN CORPUSCULAR HEMOGLOBIN 30 pg (25-34); MEAN CORPUSCULAR HGB CONC 33 g/dL (32-36); MEAN CORPUSCULAR VOLUME 91 fL (80-99); MEAN PLATELET VOLUME 11.4 fL (9.0-12.2); MONOCYTES # (AUTO) 1.3 10^3/uL (0.0-1.0); MONOCYTES % (AUTO) 8 % (0-12); NEUTROPHILS # (AUTO) 11.6 10^3/uL (1.8-7.8); NEUTROPHILS % (AUTO) 69 % (42-75); PLATELET COUNT 295 10^3/uL (130-400); WHITE BLOOD COUNT 16.9 10^3/uL (4.3-11.0)
[2023-02-03 05:48] VITALS: BP 129/81
[2023-02-03] MEDS: IBUPROFEN 600 MG TABLET PO SCH ×2 (05:48→13:35)
[2023-02-03] MEDS ORDERED: IBUP-844 PO (08:18)
[2023-02-03] MEDS: DOCUSATE SODIUM 100 MG CAPSULE PO SCH (08:46)
[2023-02-03] MEDS: PRENATAL VITAMIN TABLET PO SCH (08:46)
[2023-02-03 08:49] VITALS: BP 130/87
[2023-02-03] MEDS ORDERED: FLU QUADRIvalent (6 months+) 60 mcg/0.5 ml 2023-2024 (FLUARIX) IM ONE (08:52)
[2023-02-03 13:35] VITALS: BP 127/82
[2023-02-03] MEDS: ACETAMINOPHEN 500 MG TABLET PO PRN (14:47)
--- NOTE | 2023-02-03 16:40 | Discharge Summary ---
Discharge Summary Hospital Course Hospital Course Date of Admission: Feb 02, 2023 at 00:31 Admission Diagnosis : Active labor Family Physician/Provider: Elle May MD Date of Discharge: 02/03/23 Discharge Diagnosis: s/p spontaneous vaginal delivery Hospital Course: Unremarkable labor, delivery and course. Labs and Pending Lab Test: Laboratory Tests 02/03/23 05:30: White Blood Count 16.9H, Red Blood Count 3.69L, Hemoglobin 11.2L, Hematocrit 34L , Mean Corpuscular Volume 91, Mean Corpuscular Hemoglobin 30, Mean Corpuscular Hemoglobin Concent 33, Red Cell Distribution Width 13.3, Platelet Count 295, Mean Platelet Volume 11.4, Immature Granulocyte % (Auto) 1, Neutrophils (%) (Auto) 69, Lymphocytes (%) (Auto) 21, Monocytes (%) (Auto) 8, Eosinophils (%) (Auto) 1, Basophils (%) (Auto) 0, Neutrophils # (Auto) 11.6H, Lymphocytes # (Auto) 3.6, Monocytes # (Auto) 1.3H, Eosinophils # (Auto) 0.2, Basophils # (Auto) 0.1, Immature Granulocyte # (Auto) 0.1 Home Meds Active Ibu (Ibuprofen) 600 Mg Tablet 600 Mg PO Q6H PRN Pnv Plus Multivit Tab (Pnv with Ca,No.72/Iron/FA) 1 Each Tablet 1 Ea PO DAILY@0700 Reported Hydroxyzine HCl 10 Mg Tablet 10 Mg PO BID PRN Assessment/Pt DC Instructions Follow up in 6 weeks for visit Discharge Diet: Regular Diet Activity as Tolerated: Yes (avoid strenuous activity x 6 weeks) Discharge Physical Examination Allergies: Coded Allergies: Penicillins (Verified Allergy, Unknown, 04/04/20) amoxicillin (Verified Allergy, Unknown, 04/04/20) General Appearance: No Apparent Distress, WD/WN Respiratory: Lungs Clear, Normal Breath Sounds Cardiovascular: Regular Rate, Rhythm, No Murmur Extremity: No Pedal Edema Skin: Normal Color, Warm/Dry Neurologic/Psychiatric: Alert, Normal Mood/Affect TIKI GRANT MD Feb 03, 2023 16:40
== END 2023-02-03 17:15 | disposition home or self-care (01) | DRG 807 ==
LOC: WSo 00:04 → LDRP 00:04 → WSo 00:30 → LDRP 00:31
PROVIDERS: ADMIT Family Medicine; ATTEND Family Medicine
PROC: 10E0XZZ Delivery of Products of Conception, External Approach (ICD-10-PCS; principal; 2023-02-02)
DX: O71.82 Other specified trauma to perineum and vulva (principal); Z37.0 Single live birth; Z3A.37 37 weeks gestation of pregnancy; Z23 Encounter for immunization; Z87.891 Personal history of nicotine dependence
CPT/HCPCS: 36415; 85025; 86780; 86850; 86900; 86901; 90686; 99212